=== PATIENT | female | born 1970 | race Hispanic/Latino ===

== ENCOUNTER 2019-10-01 06:32 | Emergency (ER) | payer BC, SELFPAY ==
--- NOTE | 2019-10-01 07:26 | EDPHYS ---
Physician Documentation [facility] Name: Lzu Freeman Age: 49 yrs Sex: Female : 1970 Arrival Date: 10/01/2019 Time: 06:33 Bed 18 Private MD: ED Physician Alexandr Pina HPI: 09/30 06:43 This 49 yrs old Female presents to ER via Unassigned with complaints of Sore cp Throat. 06:43 The patient presents with sore throat. Onset: The symptoms/episode began/occurred this cp morning. Severity of symptoms: in the emergency department the symptoms are unchanged, despite home interventions. Associated signs and symptoms: Pertinent negatives cough, dysphagia, earache, fever, flu-like symptoms, headache. 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 - Social history:: Smoking status: Patient denies any tobacco usage or history of. ROS: 06:43 Eyes: Negative for injury, pain, redness, and discharge. cp 06:43 Constitutional: Negative for body aches, chills, fever, poor PO intake. 06:43 ENT: Positive for sore throat, Negative for drainage from ear(s), ear pain, difficulty swallowing, difficulty handling secretions. 06:43 Respiratory: Negative for cough, shortness of breath, wheezing. 06:43 Abdomen/GI: Negative for abdominal pain, nausea, vomiting, and diarrhea. 06:43 Skin: Negative for rash. 06:43 Neuro: Negative for headache. 06:43 All other systems are negative. Exam: 06:45 Head/Face: Normocephalic, atraumatic. cp 06:45 Constitutional: The patient appears in no acute distress, alert, awake, non-toxic, well developed, well nourished. 06:45 Eyes: Periorbital structures: appear normal, Conjunctiva: normal, no exudate, no injection, Lids and lashes: appear normal, bilaterally. 06:45 ENT: External ear(s): are unremarkable, Ear canal(s): cerumen impaction, that is moderate, bilaterally, Nose: is normal, Mouth: Lips: moist, Oral mucosa: moist, Posterior pharynx: Airway: no evidence of obstruction, patent, Tonsils: no enlargement, no exudate, Uvula: midline, swelling, is not appreciated, erythema, that is mild, exudate, is not appreciated. 06:45 Neck: ROM/movement: is normal, is supple, no meningismus, no nuchal rigidity, Lymph nodes: no appreciated lymphadenopathy. 06:45 Chest/axilla: Inspection: normal, Palpation: is normal, no crepitus, no tenderness. 06:45 Cardiovascular: Rate: normal, Rhythm: regular. 06:45 Respiratory: the patient does not display signs of respiratory distress, Respirations: normal, no use of accessory muscles, no retractions, labored breathing, is not present. 06:45 Abdomen/GI: Exam negative for discomfort, distension, guarding, Inspection: abdomen appears normal. Vital Signs: 06:41 BP 162 / 97; Pulse 72; Resp 18; Temp 97.3; Pulse Ox 98% ; Weight 97.52 kg; Height 5 ft. ea 4 in. (162.56 cm); 06:41 Body Mass Index 36.90 (97.52 kg, 162.56 cm) ea MDM: 06:39 Patient medically screened. cp 06:44 Differential diagnosis: group A strep tonsillitis, influenza, pharyngitis, cp retropharyngeal abcess tonsillitis, upper respiratory infection, uvulitis. 07:22 Data reviewed: vital signs, nurses notes, lab test result(s), and as a result, I will cp discharge patient. 07:22 Counseling: I had a detailed discussion with the patient and/or guardian regarding: the cp historical points, exam findings, and any diagnostic results supporting the discharge/admit diagnosis, lab results, to return to the emergency department if symptoms worsen or persist or if there are any questions or concerns that arise at home. 09/30 06:43 Order name: Strep cp 09/30 07:12 Order name: Throat Culture EDMS Administered Medications: No medications were administered Disposition: 10:41 Co-signature as Attending Physician, Alexandr Pina MD I agree with the assessment and tw4 plan of care. Disposition: 10/01/19 07:23 Discharged to Home. Impression: Acute pharyngitis. - Condition is Stable. - Discharge Instructions: Pharyngitis. - Work release form, Medication Reconciliation Form, Thank You Letter, Antibiotic Education, Prescription Opioid Use form. - Follow up: Private Physician; When: 2 - 3 days; Reason: Worsening of condition. - Problem is new. - Symptoms are unchanged. Signatures: Dispatcher [employer] Sathya Velasquez RN RN em Page, Corey, PA PA cp Antunez, Elena, RN RN ea Wadley, Terrence, MD MD tw4 Corrections: (The following items were deleted from the chart) 07:30 07:23 10/01/2019 07:23 Discharged to Home. Impression: Acute pharyngitis. Condition is em Stable. Forms are Medication Reconciliation Form, Thank You Letter, Antibiotic Education, Prescription Opioid Use. Follow up: Private Physician; When: 2 - 3 days; Reason: Worsening of condition. Problem is new. Symptoms are unchanged. cp
--- NOTE | 2019-10-01 07:26 | ER ---
Nurse's Notes [facility] Name: Luz Freeman Age: 49 yrs Sex: Female : 1970 Arrival Date: 10/01/2019 Time: 06:33 Bed 18 Private MD: Diagnosis: Acute pharyngitis Presentation: 09/30 06:43 Chief complaint: Patient states: Pt reports she woke with a sore throat. States " I ea think it's just allergies". Coronavirus screen: The patient has NOT traveled to a country currently being monitored by the [facility] within the last 14 days. Ebola Screen: No symptoms or risks identified at this time. Initial Sepsis Screen: Does the patient meet any 2 criteria? No. Patient's initial sepsis screen is negative. Does the patient have a suspected source of infection? No. Patient's initial sepsis screen is negative. Risk Assessment: Do you want to hurt yourself or someone else? Patient reports no desire to harm self or others. 06:43 Method Of Arrival: Ambulatory ea 06:43 Acuity: CHEL 4 ea Triage Assessment: 06:49 General: Appears in no apparent distress. Behavior is appropriate for age. 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 - Social history:: Smoking status: Patient denies any tobacco usage or history of. Screenin:39 Abuse screen: Denies threats or abuse. Nutritional screening: No deficits noted. ea Tuberculosis screening: No symptoms or risk factors identified. Fall Risk None identified. Assessment: 06:46 Pain: Complains of pain in sore throat. Neuro: Level of Consciousness is awake, alert, ea obeys commands, Oriented to person, place, time. Respiratory: Airway is patent Respiratory effort is even, unlabored, Breath sounds are clear. EENT: Parent/caregiver reports the patient having sore throat. Vital Signs: 06:41 BP 162 / 97; Pulse 72; Resp 18; Temp 97.3; Pulse Ox 98% ; Weight 97.52 kg; Height 5 ft. ea 4 in. (162.56 cm); 06:41 Body Mass Index 36.90 (97.52 kg, 162.56 cm) ea ED Course: 06:33 Patient arrived in ED. cl3 06:35 Valentino Sotomayor PA is PHCP. cp 06:35 Alexandr Pina MD is Attending Physician. cp 06:40 Arm band placed on right wrist. Patient placed in an exam room, on a stretcher, on ea pulse oximetry. 06:40 Patient has correct armband on for positive identification. Bed in low position. Call ea light in reach. Side rails up X2. 06:45 Triage completed. ea 07:15 Sathya Laughlin, RN is Primary Nurse. em 07:30 No provider procedures requiring assistance completed. Patient did not have IV access em during this emergency room visit. Administered Medications: No medications were administered Outcome: 07:23 Discharge ordered by MD. cp 07:30 Discharged to home ambulatory. em 07:30 Condition: good 07:30 Discharge instructions given to patient, Instructed on discharge instructions, follow up and referral plans. Demonstrated understanding of instructions, follow-up care. 07:30 Patient left the ED. em Signatures: Sathya Laughlin, RN RN em Valentino Sotomayor PA PA cp Antunez, Elena, RN RN Jose David Lynne cl3
[2019-10-01 07:38] VITALS: BP 162/97; TEMP 97.3; O2SAT 98
== END 2019-10-01 07:30 | disposition home or self-care (01) ==
LOC: ER 06:32
DX: J02.9 Acute pharyngitis, unspecified (principal)
CPT/HCPCS: 87070; 87081; 99283

== ENCOUNTER 2020-01-05 04:15 | Emergency (ER) | payer SELFPAY ==
[2020-01-05 05:10] LABS: Urine Blood 2+ (NEG); Urine Glucose NEGATIVE (NEG); Urine Protein 1+ (NEG); Urine Specific Gravity 1.015 (1.005-1.030); Urine pH 6.5 (5.0-7.0)
--- NOTE | 2020-01-05 05:11 | EDPHYS ---
Physician Documentation [facility] Name: Luz Freeman Age: 49 yrs Sex: Female : 1970 Arrival Date: 01/05/2020 Time: 04:20 Bed 6 Private MD: Adis Johnston ED Physician Alexandr Pina HPI: 01/04 05:03 This 49 yrs old Female presents to ER via Wheelchair with complaints of Back tw4 Pain, cold sweats. 05:03 The patient presents with pain that is acute. The symptoms are located in the low back. tw4 Onset: The symptoms/episode began/occurred today. The pain does not radiate. Associated signs and symptoms: Pertinent positives: chills, cold sweats, Pertinent negatives: chest pain, constipation, dysuria, numbness, tingling. The problem was sustained from unknown cause. Modifying factors: The patient symptoms are alleviated by nothing, the patient symptoms are aggravated by nothing. The patient has not experienced similar symptoms in the past. Historical: - Allergies: 04:22 NKDA; sg - Home Meds: 04:30 None [Active]; sg - PMHx: 04:30 None; sg - PSHx: 04:22 None; sg - Immunization history:: Adult Immunizations up to date. - Social history:: Smoking status: Patient denies any tobacco usage or history of. ROS: 05:03 Constitutional: Negative for fever, chills, and weight loss, Eyes: Negative for injury, tw4 pain, redness, and discharge, Cardiovascular: Negative for chest pain, palpitations, and edema, Respiratory: Negative for shortness of breath, cough, wheezing, and pleuritic chest pain, Abdomen/GI: Negative for abdominal pain, nausea, vomiting, diarrhea, and constipation, MS/Extremity: Negative for injury and deformity, Skin: Negative for injury, rash, and discoloration, Neuro: Negative for headache, weakness, numbness, tingling, and seizure. Exam: 05:03 Constitutional: This is a well developed, well nourished patient who is awake, alert, tw4 and in no acute distress. Head/Face: Normocephalic, atraumatic. Chest/axilla: Normal chest wall appearance and motion. Nontender with no deformity. No lesions are appreciated. Cardiovascular: Regular rate and rhythm with a normal S1 and S2. No gallops, murmurs, or rubs. Normal PMI, no JVD. No pulse deficits. Respiratory: Lungs have equal breath sounds bilaterally, clear to auscultation and percussion. No rales, rhonchi or wheezes noted. No increased work of breathing, no retractions or nasal flaring. Abdomen/GI: Soft, non-tender, with normal bowel sounds. No distension or tympany. No guarding or rebound. No evidence of tenderness throughout. MS/ Extremity: Pulses equal, no cyanosis. Neurovascular intact. Full, normal range of motion. Neuro: Awake and alert, GCS 15, oriented to person, place, time, and situation. Cranial nerves II-XII grossly intact. Motor strength 5/5 in all extremities. Sensory grossly intact. Cerebellar exam normal. Normal gait. 05:03 Back: pain, that is mild, ROM is normal, normal spinal alignment noted. Vital Signs: 04:30 BP 146 / 66; Pulse 83; Resp 17; Temp 98; Pulse Ox 98% on R/A; rv 05:11 BP 123 / 64; Pulse 83; Resp 18; Pulse Ox 97% on R/A; rv MDM: 04:31 Patient medically screened. tw4 05:03 Data reviewed: vital signs, nurses notes. Data interpreted: Pulse oximetry: [facility] Interpretation: normal. Counseling: I had a detailed discussion with the patient and/or guardian regarding: the historical points, exam findings, and any diagnostic results supporting the discharge/admit diagnosis. 05:09 Differential diagnosis: Ureterolithiasis. Special discussion: I discussed with the 4 patient/guardian in detail that at this point there is no indication for admission to the hospital. It is understood, however, that if the symptoms persist or worsen the patient needs to return immediately for re-evaluation. 01/04 04:32 Order name: Urine Microscopic Only 4 01/04 05:06 Order name: Urine Dipstick--Ancillary (enter results) tt3 01/04 04:32 Order name: Urine Dipstick-Ancillary (obtain specimen); Complete Time: 05:02 4 01/04 04:32 Order name: Urine Test (obtain specimen); Complete Time: 05:02 01/04 05:06 Order name: Urine --Ancillary (enter results) tt3 Administered Medications: No medications were administered Disposition: 01/05/20 05:09 Discharged to Home. Impression: Urinary tract infection, site not specified. - Condition is Stable. - Discharge Instructions: Urinary Tract Infection, Adult. - Prescriptions for Pyridium 200 mg Oral Tablet - take 1 tablet by ORAL route every 8 hours for 3 days; 9 tablet. Macrobid 100 mg Oral Capsule - take 1 capsule by ORAL route every 12 hours for 10 days; 20 capsule. - Medication Reconciliation Form, Thank You Letter, Antibiotic Education, Prescription Opioid Use form. - Follow up: Adis Johnston MD; When: Upon discharge from the Emergency Department; Reason: Recheck today's complaints, Continuance of care, Re-evaluation by your physician. - Problem is new. - Symptoms have improved. Signatures: Dispatcher [employer] EDMS Mario Nolan RN RN sg Alexandr Pina MD MD tw4 Siva Storey RN RN rr5 Corrections: (The following items were deleted from the chart) 05: 05:09 01/05/2020 05:09 Discharged to Home. Impression: Urinary tract infection, site rr5 not specified. Condition is Stable. Forms are Medication Reconciliation Form, Thank You Letter, Antibiotic Education, Prescription Opioid Use. Follow up: Adis Johnston; When: Upon discharge from the Emergency Department; Reason: Recheck today's complaints, Continuance of care, Re-evaluation by your physician. Problem is new. Symptoms have improved. tw4
--- NOTE | 2020-01-05 05:11 | ER ---
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 Coronavirus screen: Patient reports shortness of breath or difficulty breathing. Ebola Screen: Patient negative for fever greater than or equal to 101.5 degrees Fahrenheit, and additional compatible Ebola Virus Disease symptoms Patient denies exposure to infectious person. Patient denies travel to an Ebola-affected area in the 21 days before illness onset. No symptoms or risks identified at this time. Initial Sepsis Screen: Does the patient meet any 2 criteria? No. Patient's initial sepsis screen is negative. Does the patient have a suspected source of infection? No. Patient's initial sepsis screen is negative. Risk Assessment: Do you want to hurt yourself or someone else? Patient reports no desire to harm self or others. Onset of symptoms was January 03, 2020. Care prior to arrival: None. 04:22 Method Of Arrival: Wheelchair sg 04:22 Acuity: CHEL 3 sg Triage Assessment: 05:12 General: Appears comfortable, Behavior is calm, cooperative. rv Historical: - Allergies: 04:22 NKDA; sg - Home Meds: 04:30 None [Active]; sg - PMHx: 04:30 None; sg - PSHx: 04:22 None; sg - Immunization history:: Adult Immunizations up to date. - Social history:: Smoking status: Patient denies any tobacco usage or history of. Screenin:12 Abuse screen: Denies threats or abuse. Denies injuries from another. Nutritional rv screening: No deficits noted. Tuberculosis screening: No symptoms or risk factors identified. Fall Risk None identified. Assessment: 04:22 General: Appears in no apparent distress. uncomfortable, Behavior is calm, cooperative, rr5 appropriate for age. 04:22 Pain: Complains of pain in left low back and right low back Pain currently is 9 out of rr5 10 on a pain scale. Quality of pain is described as aching, Pain began gradually, Is intermittent. Neuro: Level of Consciousness is awake, alert, obeys commands, Oriented to person, place, time, situation, Appropriate for age. Cardiovascular: Capillary refill < 3 seconds Patient's skin is warm and dry. Respiratory: Reports shortness of breath Airway is patent Respiratory effort is even, unlabored, Respiratory pattern is regular, symmetrical. GI: No signs and/or symptoms were reported involving the gastrointestinal system. : No signs and/or symptoms were reported regarding the genitourinary system. EENT: No signs and/or symptoms were reported regarding the EENT system. Derm: No signs and/or symptoms reported regarding the dermatologic system. Musculoskeletal: Capillary refill < 3 seconds. Vital Signs: 04:30 BP 146 / 66; Pulse 83; Resp 17; Temp 98; Pulse Ox 98% on R/A; rv 05:11 BP 123 / 64; Pulse 83; Resp 18; Pulse Ox 97% on R/A; rv ED Course: 04:20 Patient arrived in ED. es 04:21 Adis Johnston MD is Private Physician. es 04:26 Arm band placed on. sg 04:28 Triage completed. sg 04:30 Patient has correct armband on for positive identification. Bed in low position. Call rv light in reach. Pulse ox on. NIBP on. 04:31 Alexandr Pina MD is Attending Physician. tw4 05:02 Siva Storey, MIREYA is Primary Nurse. rr5 05:09 Adis Johnston MD is Referral Physician. tw4 05:12 No provider procedures requiring assistance completed. Patient did not have IV access rv during this emergency room visit. Administered Medications: No medications were administered Outcome: 05:09 Discharge ordered by . tw4 05:13 Discharged to home ambulatory. rr5 05:13 Condition: stable 05:13 Discharge instructions given to patient, Instructed on discharge instructions, follow up and referral plans. medication usage, Demonstrated understanding of instructions, follow-up care, medications, Prescriptions given X 2. 05:20 Patient left the ED. rr5 Addendum: 01/08/2020 17:09 Addendum: Culture Results: Positive urine culture. No further action required. Bacteria i w sensitive to prescribed antibiotic. Signatures: Mario Nolan, RN RN sg Cristian, Becca Bae RN RN iw Alexandr Pina MD MD tw4 Richard Rosales, RN RN Siva Elliott RN RN rr5
[2020-01-05 05:21] LABS: Urine Bacteria >50 /HPF (<20); Urine Culture Reflex Order REFLEXED; Urine Yeast FEW (NONE SEEN)
[2020-01-05 05:39] VITALS: TEMP 98
[2020-01-05 05:41] VITALS: BP 123/64; O2SAT 97
--- OUTSIDE RECORDS SUMMARY | 2020-01-05 13:55 | XMS REPORT | Continuity of Care Document ---
:1970 Author Organization [facility] t Address [address] [place] [address] [address] [place] [address] Care Team Providers Name Role Phone Isidro HANEY Attending Clinician Problems This patient has no known problems. Allergies, Adverse Reactions, Alerts This patient has no known allergies or adverse reactions. Medications This patient has no known medications. Procedures This patient has no known procedures. Encounters Start End Encounter Admission Attending Care Care Encounter Source Date/Time Date/Time Type Type Clinicians Facility Department ID 2019-10-02 2019-10-02 [id number] 08:08:24 09:12:00 Osei Aldana [id number] [place] [id number] [place] [id number] Results This patient has no known results.
== END 2020-01-05 05:20 | disposition home or self-care (01) ==
LOC: ER 04:15
DX: N39.0 Urinary tract infection, site not specified (principal)
CPT/HCPCS: 81003; 81015; 81025; 87077; 87086; 87088; 87186; 99283

== ENCOUNTER 2020-01-06 20:01 | Emergency (ER) | payer SELFPAY ==
--- OUTSIDE RECORDS SUMMARY | 2020-01-06 20:03 | XMS REPORT | Continuity of Care Document ---
:1970 Author Organization [facility] t Address [address] [place] [address] Care Team Providers Name Role Phone Isidro [...] Clinicians Facility Department ID 2019-10-02 2019-10-02 Emergency Isidro [facility] [id number] 08:08:24 09:12:00 Osei Aldana [id number] [place] [id number] [place] [id number] Results This patient has no known results.
[2020-01-06 23:15] LABS: Absolute Lymphocytes (CBC) 2.2 K/uL (0.7-4.9); Basophils % 0.8 % (0-1.3); Hematocrit 40.5 % (36.0-45.0); Lymphocytes % 15.1 % (15.3-44.8); MPV 11.2 fL (7.6-11.3); RBC Red Blood Cell Count 4.46 M/uL (3.86-4.86)
[2020-01-06] MEDS ORDERED: NA CHLORIDE 0.9% 1,000 ML ONE (23:22)
[2020-01-06] MEDS ORDERED: ACETAMINOPHEN 500 MG TAB ONE (23:22)
[2020-01-06] MEDS ORDERED: ONDANSETRON 4 MG/2 ML VIAL ONE (23:54)
[2020-01-06] MEDS ORDERED: CEFTRIAXONE/SWI 1gm 1 GM/10 ML SYR ONE (23:55)
[2020-01-07 00:02] LABS: Albumin 3.1 g/dL (3.4-5.0); Bilirubin Direct 0.2 mg/dL (0-0.2); Bilirubin Total 0.5 mg/dL (0.2-1.0); Potassium 3.7 mmol/L (3.5-5.1)
[2020-01-07 00:21] LABS: Urine Bacteria 20-50 /HPF (<20); Urine Culture Reflex Order REFLEXED
[2020-01-07 00:24] LABS: Urine Blood 2+ (NEG); Urine Glucose TRACE (NEG); Urine Protein 2+ (NEG); Urine Specific Gravity 1.015 (1.005-1.030)
--- NOTE | 2020-01-07 00:55 | ER ---
Nurse's Notes [facility] Name: Luz Freeman Age: 49 yrs Sex: Female : 1970 Arrival Date: 01/06/2020 Time: 20:03 Bed 15 Private MD: Diagnosis: Urinary tract infection, site not specified-pyelonephritis Presentation: 01/05 20:13 Chief complaint: Patient states: Back pain for over 1 week. Seen here Tuesday night. ll1 Diagnosed with UTI. Pain is still severe, body aches, not feeling well. States she has a bleeding ulcer she wants checked also. Antibiotics aren't helping. Coronavirus screen: Proceed with normal triage. Patient denies a cough. Patient denies shortness of breath or difficulty breathing. Patient reports a measured and/or subjective temperature greater than 100.4F. Patient denies travel on a cruise ship or to a country the [facility] currently lists as an affected area. Patient denies contact with known and/or suspected case of COVID-19. Ebola Screen: Patient denies travel to an Ebola-affected area in the 21 days before illness onset. Initial Sepsis Screen: Does the patient meet any 2 criteria? Temp <36.0*C (96.8*F)) or > 38.3*C (100.9*F). HR > 90 bpm. Risk Assessment: Do you want to hurt yourself or someone else? Patient reports no desire to harm self or others. Onset of symptoms was December 26, 2019. 20:13 Method Of Arrival: [facility] 20:13 Acuity: CHEL 3 ll1 23:24 Initial Sepsis Screen: Does the patient have a suspected source of infection? Yes: ll1 Dysuria/Frequency/Urgency/UTI Acute abdominal pain. Triage Assessment: 23:20 General: Appears. 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 - Social history:: Smoking status: Patient denies any tobacco usage or history of. Patient/guardian denies using alcohol, street drugs, tobacco products. Screenin:20 Abuse screen: Denies threats or abuse. Nutritional screening: No deficits noted. ll1 Tuberculosis screening: No symptoms or risk factors identified. Fall Risk None identified. IV access (20 points). Total Saleh Fall Scale indicates No Risk (0-24 pts). Assessment: 22:40 General: Appears uncomfortable, Behavior is calm, cooperative, appropriate for age. ll1 Pain: Complains of pain in back, body aches Quality of pain is described as aching, Pain began over 1 week. Neuro: No deficits noted. Level of Consciousness is awake, alert, obeys commands, Oriented to person, place, time, situation, Videogame Designer are equal bilaterally Moves all extremities. Full function Gait is steady, Speech is normal, Facial symmetry appears normal, Reports weakness generalized weakness and malaise. Cardiovascular: No deficits noted. Respiratory: No deficits noted. GI: Abdomen is flat, Bowel sounds present X 4 quads. Abd is soft and non tender X 4 quads. Reports lower abdominal pain, diarrhea, nausea. : Urine is orange red in color, taking azo. Sent to lab for further testing. Reports being treated for UTI, taking azo. Denies dysuria now. Musculoskeletal: Reports generalized body aches and back pain. 23:40 Reassessment: Patient appears in no apparent distress at this time. No changes from ll1 previously documented assessment. Patient and/or family updated on plan of care and expected duration. Pain level reassessed. Patient is alert, oriented x 3, equal unlabored respirations, skin warm/dry/pink. 01/06 00:37 Reassessment: Patient appears in no apparent distress at this time. No changes from ch2 previously documented assessment. Patient and/or family updated on plan of care and expected duration. Pain level reassessed. Patient is alert, oriented x 3, equal unlabored respirations, skin warm/dry/pink. Patient denies pain at this time. General: Appears in no apparent distress. ill, well groomed, Behavior is calm, cooperative, appropriate for age, drowsy. Pain: Denies pain. 01:06 Reassessment: Patient appears in no apparent distress at this time. No changes from ch2 previously documented assessment. Patient and/or family updated on plan of care and expected duration. Pain level reassessed. Patient is alert, oriented x 3, equal unlabored respirations, skin warm/dry/pink. Patient denies pain at this time. Vital Signs: 01/05 20:13 BP 134 / 70; Pulse 105; Resp 19; Temp 100.9; Pulse Ox 95% ; Pain 10/10; ll1 23:23 Resp 18; Temp 100.3; ll1 01/06 00:36 Temp 98.7(O); Pain 0/10; ch2 00:38 BP 123 / 71; Pulse 75; Resp 18; Temp 98.7(O); Pulse Ox 94% on R/A; Pain 0/10; ch2 01:09 BP 128 / 74; Pulse 77; Resp 16; Pulse Ox 95% on R/A; Pain 0/10; ch2 ED Course: 01/05 20:03 Patient arrived in ED. ag3 20:15 Triage completed. ll1 20:16 Arm band placed on. ll1 22:37 Gavin Welsh NP is PHCP. pm1 22:37 Valentino Kong MD is Attending Physician. pm1 23:00 Inserted saline lock: 20 gauge in right antecubital area, using aseptic technique. 1 Blood collected. 23:12 Vin Singletary RN is Primary Nurse. 1 23:20 Patient has correct armband on for positive identification. Bed in low position. Call [facility] light in reach. Side rails up X 1. 23:43 Radiology exam delayed due to IV insertion attempt and/or patient not having kw1 appropriate IV at this time. 23:59 Report given to MIREYA Titus. [facility] 01/06 00:23 CT Abd/Pelvis - IV Contrast Only In Process Unspecified. EDMS 00:38 Pulse ox on. NIBP on. ch2 01:07 No provider procedures requiring assistance completed. ch2 01:08 IV discontinued, intact, bleeding controlled, No redness/swelling at site. Pressure ch2 dressing applied. Administered Medications: 01/05 23:19 Drug: NS 0.9% 1000 ml Route: IV; Rate: 1000 ml; Site: right antecubital; [facility] 01/06 01:08 Follow up: IV Status: Completed infusion; IV Intake: 1000ml [facility] 01/05 23:19 Drug: Tylenol 1000 mg Route: PO; 1 23:49 Follow up: Response: No adverse reaction; RASS: Alert and Calm (0) [facility] 01/06 00:36 Follow up: Temp 98.7 Oral; Pain 0/10 Adult; Response: No adverse reaction; Temperature [facility] is decreased; Pain is decreased 01/05 23:49 Drug: Zofran (Ondansetron) 4 mg Route: IVP; Site: right antecubital; ll1 01/06 00:35 Follow up: Response: No adverse reaction; Marked relief of symptoms; Nausea is decreasedch2 00:35 Drug: Rocephin 1 grams Route: IV; Rate: calculated rate; Site: right antecubital; ch2 00:59 Follow up: Response: No adverse reaction; IV Intake: 10ml ch2 01:01 CANCELLED (Physician Discretion): LevaQUIN 750 mg 150 ml IVPB once over 90 mins pm1 01:06 Drug: LevaQUIN 750 mg Route: PO; ch2 Intake: 00:59 IV: 10ml; Total: 10ml. ch2 01:08 IV: 1000ml; Total: 1010ml. ch2 Outcome: 00:54 Discharge ordered by . pm1 01:07 Discharged to home ambulatory. ch2 01:07 Condition: improved 01:07 Discharge instructions given to patient, Instructed on discharge instructions, follow up and referral plans. medication usage, Demonstrated understanding of instructions, follow-up care, medications, Prescriptions given X 3. 01:34 Patient left the ED. ch2 Signatures: Dispatcher [employer] EDMS Gavin Welsh, [employer] pm1 Jeniffer Seay kw1 Ariela Salinas, MIREYA RN ch2 Fabienne Rodriguez 3 Vin Singletary RN RN ll1
--- NOTE | 2020-01-07 00:55 | EDPHYS ---
Physician Documentation [facility] Name: Luz Freeman Age: 49 yrs Sex: Female : 1970 Arrival Date: 01/06/2020 Time: 20:03 Bed 15 Private MD: ED Physician Valentino Kong HPI: 01/05 22:51 This 49 yrs old Female presents to ER via Ambulatory with complaints of Back pm1 Pain. 22:51 The patient presents with pain that is acute, with no known mechanism of injury. The pm1 symptoms are located in the right low back. Onset: The symptoms/episode began/occurred 1 week(s) ago. The pain does not radiate. Associated signs and symptoms: Pertinent positives: fever, nausea, Pertinent negatives: constipation, dysuria, vomiting, Diarrhea. The problem was sustained diagnosed with UTI yesterday and discharged home with macrobid. Modifying factors: The patient symptoms are alleviated by nothing, the patient symptoms are aggravated by nothing. Severity of symptoms: in the emergency department the symptoms are actually worse. The patient has not experienced similar symptoms in the past. The patient has been recently seen at the [facility] Emergency Department, yesterday, for similar complaints urine test. 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 - Social history:: Smoking status: Patient denies any tobacco usage or history of. Patient/guardian denies using alcohol, street drugs, tobacco products. ROS: 22:51 Constitutional: Negative for fever, chills, and weight loss, Cardiovascular: Negative pm1 for chest pain, palpitations, and edema, Respiratory: Negative for shortness of breath, cough, wheezing, and pleuritic chest pain. 22:51 : Negative for injury, bleeding, discharge, and swelling, MS/Extremity: Negative for injury and deformity, Skin: Negative for injury, rash, and discoloration, Neuro: Negative for headache, weakness, numbness, tingling, and seizure. 22:51 Abdomen/GI: Positive for nausea, Negative for abdominal pain, vomiting, diarrhea, constipation. 22:51 Back: Positive for flank pain, on the right, Negative for decreased range of motion. Exam: 22:51 Constitutional: This is a well developed, well nourished patient who is awake, alert, pm1 and in no acute distress. Head/Face: Normocephalic, atraumatic. 22:51 Abdomen/GI: Soft, non-tender, with normal bowel sounds. No distension or tympany. No guarding or rebound. No evidence of tenderness throughout. 22:51 Skin: Warm, dry with normal turgor. Normal color with no rashes, no lesions, and no evidence of cellulitis. MS/ Extremity: Pulses equal, no cyanosis. Neurovascular intact. Full, normal range of motion. 22:51 Cardiovascular: Exam negative for acute changes, Rate: normal, Rhythm: regular, Pulses: no pulse deficits are appreciated. 22:51 Respiratory: Exam negative for acute changes, respiratory distress, shortness of breath. 22:51 Back: pain, that is mild, of the right mid back, ROM is normal, painless, normal spinal alignment noted. 22:51 Neuro: Exam negative for acute changes, Orientation: is normal, Mentation: is normal, Motor: is normal, moves all fours, Sensation: is normal, no obvious gross deficits. Vital Signs: 20:13 BP 134 / 70; Pulse 105; Resp 19; Temp 100.9; Pulse Ox 95% ; Pain 10/10; ll1 23:23 Resp 18; Temp 100.3; ll1 01/06 00:36 Temp 98.7(O); Pain 0/10; ch2 00:38 BP 123 / 71; Pulse 75; Resp 18; Temp 98.7(O); Pulse Ox 94% on R/A; Pain 0/10; ch2 01:09 BP 128 / 74; Pulse 77; Resp 16; Pulse Ox 95% on R/A; Pain 0/10; ch2 MDM: 01/05 22:39 Patient medically screened. [facility] 01/06 00:50 Data reviewed: vital signs. Data interpreted: Pulse oximetry: on room air is 95 %. pm1 Interpretation: normal. 00:50 Counseling: I had a detailed discussion with the patient and/or guardian regarding: the pm1 historical points, exam findings, and any diagnostic results supporting the discharge/admit diagnosis, lab results, radiology results. 00:50 ED course: offered patient admission but patient would like to go home. Patient has pm1 taken 3 total doses of macrobid but not no long enough to indicate antibiotic failure. Patient without any vomiting. Macrobid not first line therapy for pyelonephritis. Will discharge home with quinolone pending urine culture results . 00:50 Counseling: I had a detailed discussion with the patient and/or guardian regarding: the pm1 need for outpatient follow up, to return to the emergency department if symptoms worsen or persist or if there are any questions or concerns that arise at home. 01/05 22:51 Order name: Basic Metabolic Panel; Complete Time: 00:21 pm1 01/05 22:51 Order name: CBC with Diff; Complete Time: 23:23 pm1 01/05 22:51 Order name: Hepatic Function; Complete Time: 00:21 pm01/05 22:51 Order name: Lipase; Complete Time: 00:21 pm1 01/05 22:51 Order name: Urine Microscopic Only; Complete Time: 00:22 pm01/05 23:03 Order name: Urine Dipstick--Ancillary (enter results); Complete Time: 00:29 mw2 01/05 22:51 Order name: CT Abd/Pelvis - IV Contrast Only 1 01/05 23:03 Order name: Urine --Ancillary (enter results); Complete Time: 00:29 mw01/06 00:50 Order name: CREATININE WHOLE BLOOD; Complete Time: 00:55 EDMS 01/05 22:51 Order name: IV Saline Lock; Complete Time: 23:13 pm1 01/05 22:51 Order name: Labs collected and sent; Complete Time: 23:13 pm01/05 22:51 Order name: Urine Dipstick-Ancillary (obtain specimen); Complete Time: 23:12 pm01/05 22:51 Order name: Urine Test (obtain specimen); Complete Time: 23:12 pm1 Administered Medications: 01/05 23:19 Drug: NS 0.9% 1000 ml Route: IV; Rate: 1000 ml; Site: right antecubital; [facility] 01/06 01:08 Follow up: IV Status: Completed infusion; IV Intake: 1000ml ch2 01/05 23:19 Drug: Tylenol 1000 mg Route: PO; [facility] 23:49 Follow up: Response: No adverse reaction; RASS: Alert and Calm (0) [facility] 01/06 00:36 Follow up: Temp 98.7 Oral; Pain 0/10 Adult; Response: No adverse reaction; Temperature ch2 is decreased; Pain is decreased 01/05 23:49 Drug: Zofran (Ondansetron) 4 mg Route: IVP; Site: right antecubital; ll1 01/06 00:35 Follow up: Response: No adverse reaction; Marked relief of symptoms; Nausea is decreasedch2 00:35 Drug: Rocephin 1 grams Route: IV; Rate: calculated rate; Site: right antecubital; ch2 00:59 Follow up: Response: No adverse reaction; IV Intake: 10ml ch2 01:01 CANCELLED (Physician Discretion): LevaQUIN 750 mg 150 ml IVPB once over 90 mins pm1 01:06 Drug: LevaQUIN 750 mg Route: PO; ch2 Disposition: 07:36 Co-signature as Attending Physician, Valentino Kong MD I agree with the assessment and asim plan of care. Disposition: 01/07/20 00:54 Discharged to Home. Impression: Urinary tract infection, site not specified - pyelonephritis. - Condition is Stable. - Discharge Instructions: Pyelonephritis, Adult. - Prescriptions for Levaquin 750 mg Oral Tablet - take 1 tablet by ORAL route once daily for 5 days; 5 tablet. Tylenol- Codeine #3 300-30 mg Oral Tablet - take 2 tablets by ORAL route every 6 hours As needed; 20 tablet. Zofran 4 mg Oral Tablet - take 1 tablet by ORAL route every 12 hours As needed; 20 tablet. - Medication Reconciliation Form, Thank You Letter, Antibiotic Education, Prescription Opioid Use form. - Follow up: Emergency Department; When: As needed; Reason: Worsening of condition. Follow up: Private Physician; When: 2 - 3 days; Reason: Recheck today's complaints, Continuance of care, Re-evaluation by your physician. - Problem is new. - Symptoms have improved. Signatures: Dispatcher [employer] Valentino Canales MD MD cha Marinas, Patrick, STRAIGHTENING PRESS OPERATOR HELPER STRAIGHTENING PRESS OPERATOR HELPER pm1 Ariela Salinas RN RN ch2 Vin Singletary RN RN ll1 Corrections: (The following items were deleted from the chart) 01:01 00:55 LevaQUIN 750 mg 150 ml IVPB once over 90 mins ordered. pm1 pm1 01:34 00:54 01/07/2020 00:54 Discharged to Home. Impression: Urinary tract infection, site ch2 not specified - pyelonephritis. Condition is Stable. Forms are Medication Reconciliation Form, Thank You Letter, Antibiotic Education, Prescription Opioid Use. Follow up: Emergency Department; When: As needed; Reason: Worsening of condition. Follow up: Private Physician; When: 2 - 3 days; Reason: Recheck today's complaints, Continuance of care, Re-evaluation by your physician. Problem is new. Symptoms have improved. pm1
[2020-01-07] MEDS ORDERED: levoFLOXacin 750 MG TAB ONE (01:05)
[2020-01-07 02:13] VITALS: TEMP 98.7
[2020-01-07 02:16] VITALS: BP 128/74; O2SAT 95
--- NOTE | 2020-01-07 09:46 | RAD REPORT ---
EXAM DESCRIPTION: CT - Abdomen Pelvis W Contrast - 01/07/2020 3:57 am CLINICAL HISTORY: FLANK PAIN TECHNIQUE: Contiguous axial images obtained through the abdomen and pelvis following the uneventful administration of IV contrast. Coronal and sagittal reformatted images were provided. This exam was performed according to our departmental dose-optimization program, which includes autom ated exposure control, adjustment of the mA and/or kV according to patient size and/or use of iterati ve reconstruction technique. COMPARISON: None available for comparison. FINDINGS: Lung bases: Left lower lobe calcified granulomata. Liver: Unremarkable Gallbladder and biliary system: Unremarkable Pancreas: Unremarkable Spleen: Unremarkable Adrenals: Unremarkable Kidneys: Somewhat heterogeneous renal cortical enhancement and minimal perinephric stranding bilatera lly. Small bilateral cysts, the largest at the upper pole on the right measuring 1.1 cm. No hydroneph rosis. Excreted contrast is present within both renal collecting systems bilaterally on delayed image s. Bowel: Moderate stool within the proximal to mid large bowel. No obstruction. No appreciable mucosal thickening. Appendix: Normal caliber appendix. No findings to suggest acute appendicitis. Urinary bladder: Unremarkable Reproductive: The uterus is retroverted. Bilateral tubal ligation clips. No adnexal mass. Lymph nodes: No pathologically enlarged lymph nodes. Peritoneum: No focal fluid collection. No free air. Vessels: No abdominal aortic aneurysm. Abdominal wall: Tiny fat-containing umbilical hernia. Bones: Multilevel spondylosis. No acute fracture. IMPRESSION: 1. Findings which may be related to bilateral pyelonephritis. 2. Other findings as above. Electronically signed by: Artie Dawson MD 01/07/2020 12:38 AM CDT Due to temporary technical issues with the PACS/Fluency reporting system, reports are being signed by the in house radiologist without review as a courtesy to ensure prompt reporting. The interpreting r adiologist is fully responsible for the content of the report.
== END 2020-01-07 01:34 | disposition home or self-care (01) ==
LOC: ER 20:01
DX: N39.0 Urinary tract infection, site not specified (principal); N12 Tubulo-interstitial nephritis, not specified as acute or chronic
CPT/HCPCS: 36415; 74177; 80048; 80076; 81003; 81015; 81025; 82565; 83690; 85025; 96361; 96374; 96375; 99284; J0696; J2405; J7030; Q9967

== ENCOUNTER 2020-08-10 10:05 | Emergency (ER) | payer SELFPAY ==
--- OUTSIDE RECORDS SUMMARY | 2020-08-10 10:07 | XMS REPORT | Continuity of Care Document ---
:1970 Author Organization [facility] t Address [address] [place] [address] [address]. [address] [place] [address] Care Team Providers Name Role Phone Isidro [...] Clinicians Facility Department ID 2019-10-02 2019-10-02 [facility] [id number] 08:08:24 09:12:00 Osei Aldana [id number] [place] [id number] [place] [phone] [id number] Results This patient has no known results.
[2020-08-10 12:16] LABS: SARS-COV-2 RT PCR POSITIVE (NEGATIVE)
--- NOTE | 2020-08-10 12:16 | ER ---
Nurse's Notes [facility] Name: Luz Freeman Age: 49 yrs Sex: Female : 1970 Arrival Date: 08/10/2020 Time: 10:07 Bed 12 Private MD: Diagnosis: Coronavirus infection, unspecified Presentation: 08/10 10:20 Chief complaint: Patient states: cough, fever, loss of sense of smell, also having iw chest and back pains. Coronavirus screen: congestion, cough unrelated to allergies, fever, loss of taste or smell. Ebola Screen: Patient negative for fever greater than or equal to 101.5 degrees Fahrenheit, and additional compatible Ebola Virus Disease symptoms Patient denies exposure to infectious person. Patient denies travel to an Ebola-affected area in the 21 days before illness onset. No symptoms or risks identified at this time. Initial Sepsis Screen: Does the patient meet any 2 criteria? No. Patient's initial sepsis screen is negative. Does the patient have a suspected source of infection? No. Patient's initial sepsis screen is negative. Risk Assessment: Do you want to hurt yourself or someone else? Patient reports no desire to harm self or others. Onset of symptoms. Onset of symptoms was August 09, 2020. 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 - Social history:: Smoking status: Patient denies any tobacco usage or history of. Screenin:40 Abuse screen: Denies threats or abuse. Denies injuries from another. Nutritional ca1 screening: No deficits noted. Tuberculosis screening: No symptoms or risk factors identified. Fall Risk None identified. Assessment: 10:40 General: Appears in no apparent distress. comfortable, Behavior is calm, cooperative, ca1 appropriate for age, Reports fever for 1-2 days, not today. Pain: Complains of pain in back and chest Pain currently is 5 out of 10 on a pain scale. Pain began 1 day ago. now just back pain, no chest pain today. Neuro: Level of Consciousness is awake, alert, obeys commands, Oriented to person, place, time, situation. Cardiovascular: Heart tones S1 S2 present Capillary refill < 3 seconds Patient's skin is warm and dry. Respiratory: Airway is patent Respiratory effort is even, unlabored. Derm: Skin is intact, is healthy with good turgor, Skin is pink, warm \T\ dry. Musculoskeletal: Circulation, motion, and sensation intact. Capillary refill < 3 seconds. Vital Signs: 10:21 BP 149 / 93; Resp 18 S; Temp 98.2; Pulse Ox 99% on R/A; iw ED Course: 10:07 Patient arrived in ED. as 10:13 [facility] kb 10:13 Bharat Aranda MD is Attending Physician. kb 10:21 Triage completed. iw 10:21 Arm band placed on. iw 10:40 Patient has correct armband on for positive identification. Bed in low position. Call ca1 light in reach. Side rails up X 1. Pulse ox on. NIBP on. Warm blanket given. 11:33 Patricia Giraldo, MIREYA is Primary Nurse. ca1 Administered Medications: No medications were administered Outcome: 12:16 Discharge ordered by MD. kb 12:33 Patient left the ED. iw Signatures: Laury Fox FNP-C FNP-Ckb Martinez, Amelia as Becca John, RN RN iw Patricia Giraldo RN RN ca1 Corrections: (The following items were deleted from the chart) 12:01 10:40 General: Appears in no apparent distress. comfortable, Behavior is calm, ca1 cooperative, appropriate for age, ca1 12:01 10:40 Pain: Complains of pain in back and chest ca1 ca1
--- NOTE | 2020-08-10 12:16 | EDPHYS ---
Physician Documentation [facility] – [place], [place] Name: Luz Freeman Age: 49 yrs Sex: Female : 1970 Arrival Date: 08/10/2020 Time: 10:07 Bed 12 Private MD: ED Physician Bharat Aranda HPI: 08/10 11:33 This 49 yrs old Female presents to ER via Ambulatory with complaints of Fever, kb Cough. 11:33 The patient or guardian reports cough, flu symptoms, low-grade fever, myalgias. Onset: kb The symptoms/episode began/occurred yesterday. Severity of symptoms: At their worst the symptoms were moderate, in the emergency department the symptoms are unchanged. Modifying factors: The symptoms are alleviated by nothing, the symptoms are aggravated by nothing. Associated signs and symptoms: Pertinent positives: fever, rhinorrhea. The patient has not experienced similar symptoms in the past. The patient has not recently seen a physician. Pt reports cough, congestion, fever, chills and body aches that started yesterday. Woke up with loss of smell so she came in. 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 - Social history:: Smoking status: Patient denies any tobacco usage or history of. ROS: 11:32 Constitutional: Positive for body aches, chills, fatigue, fever, malaise. kb 11:32 ENT: Positive for rhinorrhea, sinus congestion, loss of smell. 11:32 Respiratory: Positive for cough, Negative for dyspnea on exertion, hemoptysis, orthopnea, pleurisy, shortness of breath, sputum production, wheezing. 12:17 Cardiovascular: Negative for chest pain, palpitations, and edema, Abdomen/GI: Negative kb for abdominal pain, nausea, vomiting, diarrhea, and constipation, Back: Negative for injury and pain, MS/Extremity: Negative for injury and deformity, Skin: Negative for injury, rash, and discoloration, Neuro: Negative for headache, weakness, numbness, tingling, and seizure. Exam: 11:32 Constitutional: This is a well developed, well nourished patient who is awake, alert, kb and in no acute distress. Head/Face: Normocephalic, atraumatic. Chest/axilla: Normal chest wall appearance and motion. Nontender with no deformity. No lesions are appreciated. Cardiovascular: Regular rate and rhythm with a normal S1 and S2. No gallops, murmurs, or rubs. Normal PMI, no JVD. No pulse deficits. Respiratory: Lungs have equal breath sounds bilaterally, clear to auscultation and percussion. No rales, rhonchi or wheezes noted. No increased work of breathing, no retractions or nasal flaring. Abdomen/GI: Soft, non-tender, with normal bowel sounds. No distension or tympany. No guarding or rebound. No evidence of tenderness throughout. Skin: Warm, dry with normal turgor. Normal color with no rashes, no lesions, and no evidence of cellulitis. MS/ Extremity: Pulses equal, no cyanosis. Neurovascular intact. Full, normal range of motion. Neuro: Awake and alert, GCS 15, oriented to person, place, time, and situation. Cranial nerves II-XII grossly intact. Motor strength 5/5 in all extremities. Sensory grossly intact. Cerebellar exam normal. Normal gait. Vital Signs: 10:21 BP 149 / 93; Resp 18 S; Temp 98.2; Pulse Ox 99% on R/A; iw MDM: 10:25 Patient medically screened. kb 11:31 Data reviewed: vital signs, nurses notes. Data interpreted: Pulse oximetry: on room air kb is 99 %. Interpretation: normal. 12:16 Counseling: I had a detailed discussion with the patient and/or guardian regarding: the kb historical points, exam findings, and any diagnostic results supporting the discharge/admit diagnosis, lab results, the need for outpatient follow up, a family practitioner, to return to the emergency department if symptoms worsen or persist or if there are any questions or concerns that arise at home. 08/10 10:23 Order name: COVID-19 iw 08/10 10:23 Order name: Flu iw 08/10 12:16 Order name: COVID-19/FLU A+B; Complete Time: 12:16 EDMS Administered Medications: No medications were administered Disposition: 16:04 Co-signature as Attending Physician, Bharat Aranda MD. rn Disposition: 08/10/20 12:16 Discharged to Home. Impression: Coronavirus infection, unspecified. - Condition is Stable. - Discharge Instructions: Viral Respiratory Infection, [id number], COVID-19. - Medication Reconciliation Form, Thank You Letter, Antibiotic Education, Prescription Opioid Use, Work release form form. - Follow up: Emergency Department; When: As needed; Reason: Worsening of condition. Follow up: Private Physician; When: 2 - 3 days; Reason: Recheck today's complaints, Continuance of care, Re-evaluation by your physician. 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 [facility] 12:33 12:16 08/10/2020 12:16 Discharged to Home. Impression: Coronavirus infection, iw unspecified. Condition is Stable. Forms are Medication Reconciliation Form, Thank You Letter, Antibiotic Education, Prescription Opioid Use. Follow up: Emergency Department; When: As needed; Reason: Worsening of condition. Follow up: Private Physician; When: 2 - 3 days; Reason: Recheck today's complaints, Continuance of care, Re-evaluation by your physician. kb
[2020-08-10 12:37] VITALS: BP 149/93; TEMP 98.2; O2SAT 99
== END 2020-08-10 12:33 | disposition home or self-care (01) ==
LOC: ER 10:05
DX: U07.1 COVID-19 (principal)
CPT/HCPCS: 0240U; 99282

== ENCOUNTER 2023-11-01 18:45 | Emergency (ER) | payer SELFPAY ==
--- OUTSIDE RECORDS SUMMARY | 2023-11-01 18:48 | XMS REPORT | Continuity of Care Document ---
Author Name Unknown Address [address] [facility] [address] [place] [address] [facility] thconnect Address [address] [facility] [place] [address] Care Team Providers Care Funding Specialist Name Role Phone PCPNF, PCP NOT Primary Care Physician Unavailab RAGHU Rosas Attending Clinician Unavailable DAVEY CAMARGO Attending Clinician Unavailable DAVEY CAMARGO Attending Clinician Unavailable Doctor Unassigned, [place] Attending Clinician U navailJESSE Cadena Attending Clinician Unavailable JESSE STONE Attending Clinician Unavailable HELEN MONSON Attending Clinician Unavailable Kaley SUPERVISOR RIDE ASSEMBLYHelen Dowell Attending Clinician [phone] Lucho Mcadams Attending Clinician [phone] LUCHO WRIGHT Attending Clinician Unavailable JESSE STONE Admitting Clinician Unavailable HELEN MONSON Admitting Clinician Unavailable LUCHO WRIGHT Admitting Clinician Unavailable Problems Condition Name Condition Details Condition Category Status Onset Date Resolution Date Last Treatment Date Treating Clinician Comments Source No known active problems No known active problems Disease [facility] Allergies, Adverse Reactions, Alerts Allergy Name Allergy Type Status Severity Reaction(s) Onset Date Inactive Date Treating Clinician Comments Source NO KNOWN ALLERGIE S Drug Class Active [facility] Social History Social Habit Start Date Stop Date Quantity Comments Source Exposure to SARS-CoV-2 (event) 2022-11-01 00:00:00 2022-11-11 07:46:00 Not sure [facility] Tobacco use and exposure 2022-11-11 00:00:00 2022-11-11 00:00:00 Smokeless tobacco non-user [facility] Sex Assigned At 1970 00:00:00 1970 00:00:00 Female [facility] Smoking Status Start Date Stop Date Source Unknown if ever smoked [facility] Never smoked tobacco [facility] Medications Ordered Medication Name Filled Medication Name Start Date Stop Date Current Medication? Ordering Clinician Indication Dosage Frequency Signature (SIG) Comments Components Source Benzonatate (Tessalon) 100 Mg CAP 10-07 14:28: 00 No 100mg Three Times A Day as needed for Cough [facility] Guaifenesin /Dextrometh orphan (Robitussin Dm Liq) 5 Ml SYRP 10-07 14:28: 00 No 5mL Every 4 Hours as needed for Cold Symptoms [facility] Acetaminoph en (Tylenol) 500 Mg TAB 10-07 14:28: 00 No 500mg Every 4 Hours as needed for Pain [facility] HYDROCODONE -ACETAMINOP HEN 5-500 MG ORAL CAP 11-11 07:55: 55 Yes None Entered [facility] CIPROFLOXAC IN 500 MG ORAL TAB 11-11 07:55: 55 Yes None Entered [facility] diphenhydrA MINE (BENADRYL) injection 25 mg 10-31 14:48: 00 11-01 02:59 :00 No 25mg 25 mg, Slow IV Push, ONCE, 1 dose, On Tue10/31/22 at 1000, STAT [facility] iopamidol (ISOVUE 370-500 mL) injection 90 mL 10-31 13:30: 00 10-31 13:39 :00 No [id number] 90mL 90 mL, Intravenou s, ONCE, 1 dose, On Tue10/31/22 at 0830, Routine [facility] NaCl 0.9% (NS) bolus infusion 1,000 mL 10-31 13:30: 00 10-31 14:34 :00 No 1000mL at 999 mL/hr, 1,000 mL, IV Infusion, ONCE, 1 dose, [facility] Tue10/31/22 [facility] 0830[facility]FRAN (PF[facility] 4 mg 10-31 12:45: 00 10-31 12:47 :00 No 4mg 4 mg, Slow IV Push, ONCE, 1 dose, On Tue10/31/22 at 0745, [facility] ketorolac (TORADOL) injection 15 mg 10-31 12:38: 00 10-31 12:47 :00 No 15mg 15 mg, Slow IV Push, ONCE, 1 dose, On Tue10/31/22 at 0745, [facility] dicyclomine 20 mg tablet 10-31 00:00: 00 Yes [id number] 20mg Take 1 tablet by mouth 4 (four) times daily. [facility] ondansetron 4 mg tablet 10-31 00:00: 00 Yes [id number] 4mg Take 1 tablet by mouth every 8 (eight) hours as needed for Nausea and Vomiting (N/V) for up to 20 doses. [facility] benzonatate 100 mg capsule 10-15 00:00: 00 Yes [id number] 100mg Take 1 capsule by mouth 3 (three) times daily as needed for Cough. [facility] albuterol 90 mcg/actuati on inhaler 10-15 00:00: 00 Yes [id number] 2{puff} Inhale 2 Puffs every 4 (four) hours as needed for Wheezing or Shortness of Breath. [facility] predniSONE 20 mg tablet 10-15 00:00: 00 Yes [id number] 40mg Take 2 tablets by mouth in the morning. [facility] NaCl 0.9% (NS) bolus infusion 1,000 mL 07-22 02:00: 00 07-22 01:45 :00 No 1000mL at 999 mL/hr, 1,000 mL, IV Infusion, ONCE, 1 dose, On Tue07/21/22 at 1999, [facility] iopamidol (ISOVUE 370-500 mL) injection 75 mL 07-22 01:52: 00 07-22 02:15 :00 No [id number] 75mL 75 mL, Intravenou s, ONCE, 1 dose, On Tue07/21/22 at 2015, Routine [facility] acetaminoph en (TYLENOL) tablet 1,000 mg 07-22 01:15: 00 07-22 01:17 :00 No 1000mg 1,000 mg, Oral, ONCE, 1 dose, On Tue07/21/22 at 1915, Routine [facility] ibuprofen (IBU) tablet 800 mg 07-22 01:15: 00 07-22 01:17 :00 No 800mg 800 mg, Oral, ONCE, 1 dose, On Tue07/21/22 at 1915, [facility] ondansetron (ZOFRAN (PF)) injection 4 mg 07-22 00:38: 00 07-22 00:38 :00 No 4mg 4 mg, Slow IV Push, ONCE, 1 dose, On Tue07/21/22 at 1845, [facility] HYDROCODONE -ACETAMINOP HEN 5-500 MG ORAL CAP 07-21 16:21: 59 Yes None Entered [facility] CIPROFLOXAC IN 500 MG ORAL TAB 07-21 16:21: 59 Yes None Entered [facility] ondansetron 4 mg disintegrat ing tablet 07-21 00:00: 00 Yes [id number] 4mg Take 1 tablet by mouth every 8 (eight) hours as needed for Nausea and Vomiting (N/V). [facility] levoFLOXaci n 750 mg tablet 07-21 00:00: 00 Yes [id number] 750mg Take 1 tablet by mouth every 24 (twenty-fo ur) hours. [facility] dicyclomine 20 mg tablet 1-04 00:00: 00 10-31 00:00 :00 No [id number] 20mg Take 1 tablet by mouth 4 (four) times daily as needed for Abdominal pain. [facility] benzonatate 100 mg capsule 10-01 00:00: 00 Yes [id number] 100mg Take 1 capsule by mouth 3 (three) times daily as needed for Cough. [facility] acetaminoph en-codeine 300-30 mg tablet 10-01 00:00: 00 Yes [id number] 1{tbl} Take 1-2 tablets by mouth every 6 (six) hours as needed (cough). [facility] loratadine- pseudoephed rine (CLARITIN-D 24 HOUR) 10-240 mg per 24 hr tablet 10-01 00:00: 00 Yes [id number] 1{tbl} Take 1 tablet by mouth daily. [facility] montelukast 10 mg tablet 10-01 00:00: 00 Yes [id number] 10mg Take 1 tablet by mouth daily. [facility] Vital Signs Vital Name Observation Time Observation Value Comments S ource Body Temperature 2023-10-08 14:34:00 100.9 [degF] [facility] Heart Rate 2023-10-08 14:34:00 84 /min [facility] Respiratory rate 2023-10-08 14:34:00 18 /min [facility] BP Systolic 2023-10-08 14:34:00 128 mm[Hg] [facility] BP Diastolic 2023-10-08 14:34:00 56 mm[Hg] [facility] Height 2023-10-08 12:07:00 162.745450 cm [facility] Weight 2023-10-08 12:07:00 99.062886 kg [facility] BMI (Body Mass Index) 2023-10-08 12:07:00 37.8 kg/m2 [facility] Systolic blood pressure 2022-11-11 13:02:00 150 mm[Hg] [facility] Diastolic blood pressure 2022-11-11 13:02:00 80 mm[Hg] [facility] Heart rate 2022-11-11 13:02:00 71 /min [facility] Body temperature 2022-11-11 12:59:00 36.72 Chloe [facility] Respiratory rate 2022-11-11 12:59:00 16 /min [facility] Body height 2022-11-11 12:59:00 170.2 cm [facility] Body weight 2022-11-11 12:59:00 112.492 kg [facility] BMI 2022-11-11 12:59:00 38.84 kg/m2 [facility] Oxygen saturation in Arterial blood by Pulse oximetry 2022-11-11 12:59:00 97 /min [facility] Systolic blood pressure 2022-10-31 13:45:00 128 mm[Hg] [facility] Diastolic blood pressure 2022-10-31 13:45:00 77 mm[Hg] [facility] Heart rate 2022-10-31 13:45:00 69 /min [facility] Respiratory rate 2022-10-31 13:45:00 26 /min [facility] Oxygen saturation in Arterial blood by Pulse oximetry 2022-10-31 13:45:00 95 /min [facility] Body temperature 2022-10-31 12:15:00 37 Chloe [facility] Body height 2022-10-31 12:15:00 162.6 cm [facility] Body weight 2022-10-31 12:15:00 110.224 kg [facility] BMI 2022-10-31 12:15:00 41.71 kg/m2 [facility] Systolic blood pressure 2022-10-16 00:47:00 150 mm[Hg] [facility] Diastolic blood pressure 2022-10-16 00:47:00 80 mm[Hg] [facility] Heart rate 2022-10-16 00:47:00 63 /min [facility] Body temperature 2022-10-16 00:47:00 37 Chloe [facility] Respiratory rate 2022-10-16 00:47:00 18 /min [facility] Body height 2022-10-16 00:47:00 162.6 cm [facility] Body weight 2022-10-16 00:47:00 113.399 kg [facility] BMI 2022-10-16 00:47:00 42.91 kg/m2 [facility] Oxygen saturation in Arterial blood by Pulse oximetry 2022-10-16 00:47:00 98 /min [facility] Body temperature 2022-07-22 02:39:00 38.61 Chloe [facility] Heart rate 2022-07-22 02:27:00 102 /min [facility] Respiratory rate 2022-07-22 02:27:00 21 /min [facility] Oxygen saturation in Arterial blood by Pulse oximetry 2022-07-22 02:27:00 94 /min [facility] Systolic blood pressure 2022-07-22 01:15:00 150 mm[Hg] [facility] Diastolic blood pressure 2022-07-22 01:15:00 79 mm[Hg] [facility] Body height 2022-07-21 22:21:00 162.6 cm [facility] Body weight 2022-07-21 22:21:00 108.863 kg [facility] BMI 2022-07-21 22:21:00 41.20 kg/m2 [facility] Procedures Procedure Date / Time Performed Performing Clinicia n Source CONSENT/REFUSAL FOR DIAGNOSIS AND TREATMENT 2022-11-11 12:48:08 Doctor Unassigned, [place] [facility] EKG-12 LEAD 2022-10-31 14:43:13 Jesse Stone [facility] POCT TEST 2022-10-31 13:46:00 Jesse Stone [facility] URINALYSIS 2022-10-31 13:44:00 Jesse Stone [facility] CT ABDOMEN PELVIS W CONTRAST 2022-10-31 13:38:42 Jesse Stone [facility] LIPASE 2022-10-31 12:40:00 Jesse Stone [facility] COMP. METABOLIC PANEL ([id number]) 2022-10-31 12:40:00 Jesse Stone [facility] CBC WITH DIFF 2022-10-31 12:40:00 Jesse Stone [facility] CONSENT/REFUSAL FOR DIAGNOSIS AND TREATMENT 2022-10-31 12:10:53 Doctor Unassigned, [place] [facility] XR CHEST 2 VW 2022-10-16 01:09:32 Helen Monson [facility] RAPID STREP SCREEN FOR GROUP A 2022-10-16 00:56:00 [facility] RAPID INFLUENZA A/B 2022-10-16 00:56:00 [facility] COVID-19 (ID NOW RAPID TESTING) 2022-10-16 00:56:00 [facility] NOTICE OF PRIVACY PRACTICES 2022-10-16 00:43:23 Doctor Unassigned, [place] [facility] CONSENT/REFUSAL FOR DIAGNOSIS AND TREATMENT 2022-10-16 00:43:06 Doctor Unassigned, [place] [facility] EKG-12 LEAD 2022-07-22 02:39:47 Lucho Wright [facility] XR CHEST 1 VW 2022-07-22 02:01:00 Lucho Wright [facility] CT ABDOMEN PELVIS W CONTRAST 2022-07-22 01:55:00 Lucho Wright [facility] LIPASE 2022-07-22 00:39:00 Lucho Wright [facility] TROPONIN I 2022-07-22 00:39:00 Lucho Wright [facility] COMP. METABOLIC PANEL ([id number]) 2022-07-22 00:39:00 Lucho Wright [facility] CBC WITH DIFF 2022-07-22 00:39:00 Lucho Wright [facility] N-TERMINAL PRO-BNP 2022-07-22 00:39:00 Evelyn Wright [facility] URINALYSIS 2022-07-21 23:16:00 [facility]B 2022-07-21 23:16:00 Echo Wright [facility] COVID-19 (ID NOW RAPID TESTING) 2022-07-21 23:16:00 Lucho Wright [facility] ASSIGNMENT OF BENEFITS 2022-07-21 23:01:45 Docto r Unassigned, [place] [facility] Encounters Start Date/Time End Date/Time Encounter Type Admission Type Attending [facility] Care Facility Care Department Encounter ID Source 2023-10-08 11:56:00 2023-10-08 14:40:00 Departed Emergency Room [facility] HCIS [id number] [facility] 2023-10-08 11:56:00 2023-10-08 14:40:00 Emergency ER RAGHU GUZMÁN [facility] [id number] [facility] 2022-11-18 00:00:00 2022-11-18 00:00:00 [id number] 2022-11-11 08:30:00 2022-11-11 09:00:05 [facility] [id number] [facility] 2022-11-11 08:30:00 2022-11-11 09:00:05 Office Visit [facility] 1..840.114 350.1.13.10 4.2.7.2.686 [id number] [facility] 2022-11-11 00:00:00 2022-11-11 00:00:00 Orders Only Doctor Unassigned, [place] [facility] 1..840.114 350.1.13.10 4.2.7.2.686 [id number] [facility] 2022-10-31 07:17:00 2022-10-31 09:57:00 Emergency X JESSE STONE [facility] ERT [id number] [facility] 2022-10-31 07:17:00 2022-10-31 09:57:00 Emergency Jesse Stone [facility] [id number] 350.1.13.10 4.2.7.2.686 [id number] [facility] 2022-10-15 19:51:00 2022-10-15 21:55:00 Emergency X HELEN MONSON [facility] ERT [id number] [facility] 2022-10-15 19:51:00 2022-10-15 21:55:00 Emergency Helen Monson [facility] [id number] 350.1.13.10 4.2.7.2.686 [id number] [facility] 2022-10-15 00:00:00 2022-10-15 00:00:00 Orders Only Doctor Unassigned, [place] [facility] 1.2.840.114 350.1.13.10 4.2.7.2.686 [id number] [facility] 2022-07-21 16:23:00 2022-07-21 20:41:00 Emergency Lucho Wright [facility] 1.2.840.114 350.1.13.10 4.2.7.2.686 [id number] [facility] 2022-07-21 16:23:00 2022-07-21 20:41:00 Emergency X LUCHO WRIGHT [facility] ERT [id number] [facility] Results Test Description Test Time Test Comments Results Result Co mments Source CFCFLUBV RNA Nph Ql GERARD+[id number] 12:05:00* Test Item Value Reference Range Interpretation Comme nts Influenza Virus Type B (PCR) (test code = 18646-2) Negative Negative CFCRSV RNA Nph Ql GERARD+bci-[id number] 12:05:00* Test Item Value Reference Range Interpretation Comme nts Respiratory Syncytial Virus (PCR) (test code = 81148-6) Negative Negative CFCSpecimen source [id number] 12:05:00* Test Item Value Reference Range Interpretation Comme nts Respiratory Virus Source (test code = 97235-0) Nasopharyngeal swab [id number]-[id number] RNA Resp Ql GERARD+[id number] 12:05:00* Test Item Value Reference Range Interpretation Comme nts Coronavirus (COVID-19)(PCR) (test code = 32152-3) Negative Negative CFCPOCT [id number] 13:46:00* Test Item Value Reference Range Interpretation Comme nts POCT PREG (test code = 1605) negative On board controls acceptable with C Line (test code = 3574) present POCT PREG LOT # (test code = [id number] [id number] POCT PREG TEST DATE ( test code = 3576) 04/22/2024 Lab Interpretation (test cod e = 03884-4) Normal [facility] (21285)2022-10-31 13:14:24* Test Item Value Reference Range Interpretation Comme nts NA (test code = 5700057155) 139 mmol/L 135-145 K (test code = 6220038950) 4.4 mmol/L 3.5-5.0 CL (test code = 6894324067) 104 mmol/L 98-108 CO2 TOTAL (test code = 4865211586) 24 mmol/L 23-31 AGAP (test code = 9958055466) 11 2-16 BUN (test code = 8552231415) 15 mg/dL 7-23 GLUCOSE (test code = 2441721541) 102 mg/dL 70-110 CREATININE (test code = 5739031258) 0.74 mg/dL 0.50-1.04 TOTAL BILI (test code = 4113121789) 0.5 mg/dL 0.1-1.1 CALCIUM (test code = 4748572105) 9.2 mg/dL 8.6-10.6 T PROTEIN (test code = 5514623502) 7.5 g/dL 6.3-8.2 ALBUMIN (test code = 4841800272) 4.0 g/dL 3.5-5.0 ALK PHOS (test code = 3576473370) 71 U/L 34-122 ALTv (test code = 1742-6) 51 U/L 5-35 H AST(SGOT) (test code = 4904276666) 57 U/L 13-40 H eGFR (test code = 6030357387) 81.8 mL/min/1.73m2 OSITO (test code = OSITO) Association of Glomerular Filtration Rate (GFR) and Staging of Kidney Disease* + --+ --+ ------+| GFR (mL/min/1.73 m2) ?| With Kidney Damage ?| ?Without Kidney Damage+ --------+ --------+ +| ?>90 ?| ?Stage one ?| ? Normal ?+ ---+ ---+ -------+| ?60-89 ?| ?Stage two ?| ? Decreased GFR ? + --+ --+ ------+| ?30-59 ?| ?Stage three ?| ? Stage three ? + --+ --+ ------+| ?15-29 ?| ?Stage four ? | ? Stage four ?+ ---+ ---+ -------+| ?<15 (or dialysis) ? ?| ?Stage five ? | ? Stage five ?+ ---+ ---+ -------+ *Each stage assumes the associated GFR level has been in effect for at least three months. ?Stages 1 to 5, with or without kidney disease, indicate chronic kidney disease. Notes: Determination of stages one and two (with eGFR >59mL/min/1.73 m2) requires estimation of kidney damage for at least three months as defined by structural or functional abnormalities of the kidney, manifested by either:Pathological abnormalities or Markers of kidney damage (including abnormalities in the composition of the blood or urine or abnormalities in imaging tests). Lab Interpretation (test code = 65998-0) [facility]normal [facility] 13:14:24* Test Item Value Reference Range Interpretation Comme nts LIPASE (test code = 8385498502) 76 U/L 0-220 Lab Interpretation (test cod e = 45618-5) Normal [facility] WITH [id number] 13:02:59* Test Item Value Reference Range Interpretation Comme nts WBC (test code = 6690-2) 10.05 See_Comment [Automated messa ge] The system which generated this result transmitted reference range: 4.30 - 11.10 10*3/?L. The reference range was not used to interpret this result as normal/abnormal. RBC (test code = 789-8) 4.67 See_Comment [Automated messa ge] The system which generated this result transmitted reference range: 3.93 - 5.25 10*6/?L. The reference range was not used to interpret this result as normal/abnormal. HGB (test code = 718-7) 13.7 g/dL 11.6-15.0 HCT (test code = 4544-3) 42.1 % 35.7-45.2 MCV (test code = 787-2) 90.1 fL 80.6-95.5 MCH (test code = 785-6) 29.3 pg 25.9-32.8 MCHC (test code = 786-4) 32.5 g/dL 31.6-35.1 RDW-SD (test code = 64483-6) 46.2 fL 39.0-49.9 RDW-CV (test code = 788-0) 14.0 % 12.0-15.5 PLT (test code = 777-3) 255 See_Comment [Automated messa ge] The system which generated this result transmitted reference range: 166 - 358 10*3/?L. The reference range was not used to interpret this result as normal/abnormal. MPV (test code = 37221-7) 12.2 fL 9.5-12.9 NRBC/100 WBC (test code = 7324592079) 0.0 See_Comment [Automated [employer] ssage] The system which generated this result transmitted reference range: 0.0 - 10.0 /100 WBCs. The reference range was not used to interpret this result as normal/abnormal. NRBC x10^3 (test code = 3993287048) See_Comment [Automated messa ge] The system which generated this result transmitted reference range: 10*3/?L. The reference range was not used to interpret this result as normal/abnormal. GRAN MAT (NEUT) % (test code = 770-8) 63.9 % IMM GRAN % (test code = 9214268453) 0.30 % LYMPH % (test code = 736-9) 23.9 % MONO % (test code = 5905-5) 10.2 % EOS % (test code = 713-8) 1.4 % BASO % (test code = 706-2) 0.3 % GRAN MAT x10^3(ANC) (test code = 7428787310) 6.42 10*3/uL 1.88-7.09 IMM GRAN x10^3 (test code = 0886234014) 0.03 10*3/uL 0.00-0.06 LYMPH x10^3 (test code = 731-0) 2.40 10*3/uL 1.32-3.29 MONO x10^3 (test code = 742-7) 1.03 10*3/uL 0.33-0.92 H EOS x10^3 (test code = 711-2) 0.14 10*3/uL 0.03-0.39 BASO x10^3 (test code = 704-7) 0.03 10*3/uL 0.01-0.07 Lab Interpretation (test code = 26505-4) Abnormal [facility] [id number] 01:12:00* Test Item Value Reference Range Interpretation Comments TROPONIN I (test code = 9013081341) 0.004 ng/mL See_Comment [Automated message] The system which generated this result transmitted reference range: <=0.034. The reference range was not used to interpret this result as normal/abnormal. OSITO (test code = OSITO) Reference (Normal) Range (defined by the 99th percentile reference limit): <= 0.034 ng/mL Note: Cardiac troponin begins to rise 3-4 hours after the onset of ischemia. Repeat in 4-6 hours if the sample was drawn within 3-4 hours of the onset of the symptom and found normal. Diagnosis of myocardial injury is made with acute changes in cTn concentrations with at least one serial sample above the 99th percentile upper reference limit (URL), taken together with the patient's clinical presentation. Biotin has been reported to cause a negative bias, interpret results relative to patient's use of biotin. Lab Interpretation (test code = 97888-3) Normal [facility] [id number] 01:08:43* Test Item Value Reference Range Interpretation Comme nts NT-proBNP (test code = 9490040534) 72 pg/mL See_Comment [Automated message] The system which generated this result transmitted reference range: <=125. The reference range was not used to interpret this result as normal/abnormal. OSITO (test code = OSITO) Biotin has been reported to cause a negative bias, interpret results relative to patient's use of biotin. Lab Interpretation (test code = 93465-1) Normal [facility] (95761)2022-07-22 01:00:19* Test Item Value Reference Range Interpretation Comme nts NA (test code = 7461929999) 141 mmol/L 135-145 K (test code = 9808707468) 5.0 mmol/L 3.5-5.0 CL (test code = 1503327212) 106 mmol/L 98-108 CO2 TOTAL (test code = 0356991381) 24 mmol/L 23-31 AGAP (test code = 9727707896) 2-16 BUN (test code = 5154683836) 17 mg/dL 7-23 GLUCOSE (test code = 5358713954) 107 mg/dL 70-110 CREATININE (test code = 4068490361) 0.80 mg/dL 0.50-1.04 TOTAL BILI (test code = 2845075864) 0.8 mg/dL 0.1-1.1 CALCIUM (test code = 9802937627) 8.9 mg/dL 8.6-10.6 T PROTEIN (test code = 0415512407) 8.6 g/dL 6.3-8.2 H ALBUMIN (test code = 3660530472) 4.3 g/dL 3.5-5.0 ALK PHOS (test code = 4188298614) 100 U/L 34-122 ALTv (test code = 1742-6) 25 U/L 5-35 AST(SGOT) (test code = 8480906400) 36 U/L 13-40 eGFR (test code = 1623525790) mL/min/1.73m2 OSITO (test code = OSITO) Association of Glomerular Filtration Rate (GFR) and Staging of Kidney Disease* + --+ --+ ------+| GFR (mL/min/1.73 m2) ?| With Kidney Damage ?| ?Without Kidney Damage+ --------+ --------+ +| ?>90 ?| ?Stage one ?| ? Normal ?+ ---+ ---+ -------+| ?60-89 ?| ?Stage two ?| ? Decreased GFR ? + --+ --+ ------+| ?30-59 ?| ?Stage three ?| ? Stage three ? + --+ --+ ------+| ?15-29 ?| ?Stage four ? | ? Stage four ?+ ---+ ---+ -------+| ?<15 (or dialysis) ? ?| ?Stage five ? | ? Stage five ?+ ---+ ---+ -------+ *Each stage assumes the associated GFR level has been in effect for at least three months. ?Stages 1 to 5, with or without kidney disease, indicate chronic kidney disease. Notes: Determination of stages one and two (with eGFR >59mL/min/1.73 m2) requires estimation of kidney damage for at least three months as defined by structural or functional abnormalities of the kidney, manifested by either:Pathological abnormalities or Markers of kidney damage (including abnormalities in the composition of the blood or urine or abnormalities in imaging tests). Lab Interpretation (test code = 00469-3) [facility]* Test Item Value Reference Range Interpretation Comme nts LIPASE (test code = 4430401713) 107 U/L 0-220 Lab Interpretation (test cod e = 25081-1) Normal [facility] [id number] 00:47:58* Test Item Value Reference Range Interpretation Comme nts WBC (test code = 6690-2) See_Comment H [Automated message] The system which generated this result transmitted reference range: 4.30 - 11.10 10*3/?L. The reference range was not used to interpret this result as normal/abnormal. RBC (test code = 789-8) See_Comment [Automated message] The system which generated this result transmitted reference range: 3.93 - 5.25 10*6/?L. The reference range was not used to interpret this result as normal/abnormal. HGB (test code = 718-7) 13.8 g/dL 11.6-15.0 HCT (test code = 4544-3) 43.8 % 35.7-45.2 MCV (test code = 787-2) 92.2 fL 80.6-95.5 MCH (test code = 785-6) 29.1 pg 25.9-32.8 MCHC (test code = 786-4) 31.5 g/dL 31.6-35.1 L RDW-SD (test code = 73814-9) 47.1 fL 39.0-49.9 RDW-CV (test code = 788-0) 13.7 % 12.0-15.5 PLT (test code = 777-3) See_Comment [Automated message] The system which generated this result transmitted reference range: 166 - 358 10*3/?L. The reference range was not used to interpret this result as normal/abnormal. MPV (test code = 62998-6) 12.0 fL 9.5-12.9 NRBC/100 WBC (test code = 6079124379) See_Comment [Automated message] The system which generated this result transmitted reference range: 0.0 - 10.0 /100 WBCs. The reference range was not used to interpret this result as normal/abnormal. NRBC x10^3 (test code = 5623168857) See_Comment [Automated message] The system which generated this result transmitted reference range: 10*3/?L. The reference range was not used to interpret this result as normal/abnormal. GRAN MAT (NEUT) % (test code = 770-8) 84.3 % IMM GRAN % (test code = 6940388228) 0.90 % LYMPH % (test code = 736-9) 11.2 % MONO % (test code = 5905-5) 2.8 % EOS % (test code = 713-8) 0.4 % BASO % (test code = 706-2) 0.4 % GRAN MAT x10^3(ANC) (test code = 2880848720) 11.75 10*3/uL 1.88-7.09 H IMM GRAN x10^3 (test code = 2171247992) 0.12 10*3/uL 0.00-0.06 H LYMPH x10^3 (test code = 731-0) 1.56 10*3/uL 1.32-3.29 MONO x10^3 (test code = 742-7) 0.39 10*3/uL 0.33-0.92 EOS x10^3 (test code = 711-2) 0.06 10*3/uL 0.03-0.39 BASO x10^3 (test code = 704-7) 0.05 10*3/uL 0.01-0.07 Lab Interpretation (test code = 03579-9) Abnormal [facility]"
[2023-11-01] MEDS ORDERED: ALBUTEROL 2.5 MG/3 ML NEB SOL ONE (19:22)
[2023-11-01] MEDS ORDERED: HYDROCODONE/CHLORPHEN 5 ML/OSYR ONE (19:22)
--- NOTE | 2023-11-01 20:48 | RAD REPORT ---
EXAM DESCRIPTION: [place]oss[place] Single View11/01/2023 8:02 pm CLINICAL HISTORY: COUGH COMPARISON: Chest Single View dated 06/21/2017 TECHNIQUE: Portable AP view of the chest. FINDINGS: Decreased penetration particularly along the right base somewhat limits evaluation. The levar ngs are clear. No pneumothorax or effusion. The cardiomediastinal contours are unremarkable. IMPRESSION: No acute cardiopulmonary process.
--- NOTE | 2023-11-01 22:02 | ER ---
Nurse's Notes [facility] Name: Luz Freeman Age: 53 yrs Sex: Female : 1970 Arrival Date: 11/01/2023 Time: 18:45 Bed 18 Private MD: Diagnosis: Cough Presentation: 10/31 19:11 Chief complaint: Patient states: cough for several weeks that hasn't gone away. as6 Coronavirus screen: At this time, the client does not indicate any symptoms associated with coronavirus-19. Ebola Screen: No symptoms or risks identified at this time. Initial Sepsis Screen: Does the patient meet any 2 criteria? No. Patient's initial sepsis screen is negative. Does the patient have a suspected source of infection? No. Patient's initial sepsis screen is negative. Risk Assessment: Do you want to hurt yourself or someone else? Patient reports no desire to harm self or others. Onset of symptoms was October 17, 2023. 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 - Infectious Disease History:: Denies. - Social history:: Smoking status: Patient denies any tobacco usage or history of. Screenin:15 [facility] ED Fall Risk Assessment (Adult) History of falling in the last 3 months, mb9 including since admission No falls in past 3 months (0 pts) Confusion or Disorientation No (0 pts) Intoxicated or Sedated No (0 pts) Impaired Gait No (0 pts) Mobility Assist Device Used No (0 pt) Altered Elimination No (0 pt) Score/Fall Risk Level 0 - 2 = Low Risk Oriented to surroundings, Maintained a safe environment, Educated pt \T\ family on fall prevention, incl call for assistance when getting out of bed, Assessed \T\ reinforced patient's understanding of fall precautions. Abuse screen: Denies threats or abuse. Nutritional screening: No deficits noted. Tuberculosis screening: No symptoms or risk factors identified. Assessment: 19:27 General: Appears in no apparent distress. Behavior is calm, cooperative. Pain: Denies mb9 pain. Neuro: Walter Agitation-Sedation Scale (RASS): 0 - Alert and Calm Level of Consciousness is awake, alert, obeys commands, Oriented to person, place, time, situation, Appropriate for age. Cardiovascular: Patient's skin is warm and dry. Respiratory: Reports cough that is non-productive, Airway is patent Respiratory effort is even, unlabored, Respiratory pattern is regular, symmetrical, Breath sounds are clear bilaterally. GI: No signs and/or symptoms were reported involving the gastrointestinal system. : No signs and/or symptoms were reported regarding the genitourinary system. EENT: No signs and/or symptoms were reported regarding the EENT system. Derm: Skin is pink, warm \T\ dry. Musculoskeletal: Range of motion: intact in all extremities. 21:04 Reassessment: Assumed care of patient at this time. Pt currently speaking on phone. Pt cm10 states that she feels much better. Updated pt on plan of care, no needs at this time. General: Appears in no apparent distress. comfortable, Behavior is calm, cooperative. Neuro: No deficits noted. Level of Consciousness is awake, alert, obeys commands, Oriented to person, place, time, situation, Appropriate for age. Respiratory: No deficits noted. Reports cough that is non-productive, Airway is patent Respiratory effort is even, unlabored, Respiratory pattern is regular, symmetrical. Derm: No deficits noted. Skin is intact, Skin is pink, warm \T\ dry. Musculoskeletal: No deficits noted. Range of motion: intact in all extremities. 22:13 Reassessment: Patient appears in no apparent distress at this time. No changes from cm10 previously documented assessment. Patient and/or family updated on plan of care and expected duration. Pain level reassessed. Patient is alert, oriented x 3, equal unlabored respirations, skin warm/dry/pink. Patient states feeling better. Patient states symptoms have improved. Vital Signs: 19:09 Pulse 74; Resp 18 S; Temp 97.4(TE); Pulse Ox 99% on R/A; Weight 108.86 kg (R); Height 5 as6 ft. 4 in. (R); Pain 0/10; 19:11 BP 148 / 76; as6 19:09 Body Mass Index 41.20 (108.86 kg, 162.56 cm) as6 19:09 Pain Scale: Adult as6 ED Course: 18:48 Patient arrived in ED. mg5 19:00 [facility]C [facility] kb 19:00 Ender Marino MD is Attending Physician. kb 19:09 Arm band placed on. as6 19:12 Triage completed. as6 19:12 Guera Velez, RN is Primary Nurse. mb9 19:14 Placed in gown. Bed in low position. Call light in reach. Side rails up X 1. Provided mb9 Education on: press call light if needing anything. Client placed on continuous cardiac and pulse oximetry monitoring. NIBP monitoring applied. 19:17 No provider procedures requiring assistance completed. mb9 19:26 Strep Sent. mb9 20:04 Chest Single View XRAY In Process Unspecified. EDMS 20:54 Report given to MIREYA Alfaro. mb9 21:03 Primary Nurse role handed off by Guera Velez, MIREYA cm10 21:03 Angelina Molina RN is Primary Nurse. cm10 22:13 Patient did not have IV access during this emergency room visit. cm10 Administered Medications: 19:26 Drug: Tussionex Pennkinetic ER PO Suspension 5 ml PO once Route: PO; mb9 19:51 Follow up: Response: No adverse reaction mb9 19:26 Drug: Albuterol Inhalation 2.5 mg Inhalation once Route: Inhalation; mb9 19:52 Follow up: Response: No adverse reaction mb9 Medication: 19:14 VIS not applicable for this client. mb9 Outcome: 22:01 Discharge ordered by . kb 22:13 Discharged to home ambulatory, cm10 22:13 Condition: good 22:13 Discharge instructions given to patient, Instructed on discharge instructions, follow up and referral plans. Demonstrated understanding of instructions, follow-up care, 22:13 Patient left the ED. cm10 Signatures: Dispatcher [employer] EDMD Laury Fox FNP-C FNP-Ckb Slawson, Ashby, RN RN as6 Guera Velez, Angelina Monae RN, RN RN cm10 Tamara Stoner mg5
--- NOTE | 2023-11-01 22:02 | EDPHYS ---
Physician Documentation [facility] Name: Luz Freeman Age: 53 yrs Sex: Female : 1970 Arrival Date: 11/01/2023 Time: 18:45 Bed 18 Private MD: ED Physician Ender Marino HPI: 10/31 22:39 This 53 yrs old Female presents to ER via Ambulatory with complaints of Flu kb Symptoms. 22:39 Pt is a 53 year old female who presents for cough for 3-4 weeks and sore throat that kb started this week. Reports exposure to strep. Denies fever. States she believes this started out as the flu and the cough just hasn't gone away. 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 - Infectious Disease History:: Denies. - Social history:: Smoking status: Patient denies any tobacco usage or history of. ROS: 22:39 Constitutional: As per HPI kb Exam: 22:39 Constitutional: This is a well developed, well nourished patient who is awake, alert, kb and in no acute distress. Head/Face: Normocephalic, atraumatic. ENT: Moist Mucous membranes Cardiovascular: Regular rate Respiratory: Respirations even and unlabored. No increased work of breathing. Talking in full sentences Abdomen/GI: Soft, non-tender. No distention Skin: Warm, dry with normal turgor. Normal color. MS/ Extremity: Pulses equal, no cyanosis. Neurovascular intact. Full, normal range of motion. Neuro: Awake and alert, GCS 15, oriented to person, place, time, and situation. Moves all extremities. Normal gait. Vital Signs: 19:09 Pulse 74; Resp 18 S; Temp 97.4(TE); Pulse Ox 99% on R/A; Weight 108.86 kg (R); Height 5 as6 ft. 4 in. (R); Pain 0/10; 19:11 BP 148 / 76; as6 19:09 Body Mass Index 41.20 (108.86 kg, 162.56 cm) as6 19:09 Pain Scale: Adult as6 MDM: 19:02 Patient medically screened. kb 22:39 Differential Diagnosis: Bronchitis Influenza Upper Respiratory Infection Pneumonia kb Other strep. Data reviewed: vital signs, nurses notes. Counseling: I had a detailed discussion with the patient and/or guardian regarding the historical points, exam findings, and any diagnostic results supporting the discharge/admit diagnosis, lab results, radiology results, the need for outpatient follow up, a family practitioner, to return to the emergency department if symptoms worsen or persist or if there are any questions or concerns that arise at home. 10/31 19:21 Order name: Strep; Complete Time: 22:01 kb 10/31 21:10 Order name: Throat Culture EDOK 10/31 19:21 Order name: Chest Single View XRAY; Complete Time: 20:50 kb Administered Medications: 19:26 Drug: Tussionex Pennkinetic ER PO Suspension 5 ml PO once Route: PO; mb9 19:51 Follow up: Response: No adverse reaction mb9 19:26 Drug: Albuterol Inhalation 2.5 mg Inhalation once Route: Inhalation; mb9 19:52 Follow up: Response: No adverse reaction mb9 Disposition Summary: 11/01/23 22:01 Discharge Ordered Notes: Location: Home kb Condition: Stable kb Diagnosis - Cough kb Followup: kb - With: Emergency Department - When: As needed - Reason: Worsening of condition Followup: kb - With: Private Physician - When: 2 - 3 days - Reason: Recheck today's complaints, Continuance of care, Re-evaluation by your physician Discharge Instructions: - Discharge Summary Sheet kb - Cough, Adult, [id number] kb Forms: - Medication Reconciliation Form kb - Thank You Letter kb - Antibiotic Education kb - Prescription Opioid Use kb - Patient Portal Instructions kb - Leadership Thank You Letter kb Signatures: Dispatcher [employer] EDLaury Llamas FNP-C FNP-Adolfo Healy RN RN as6 Guera Velez RN RN mb9
[2023-11-02 08:05] VITALS: BP 148/76; TEMP 97.4; O2SAT 99
== END 2023-11-01 22:13 | disposition home or self-care (01) ==
LOC: ER 18:45
DX: R05.9 Cough, unspecified (principal)
CPT/HCPCS: 71045; 87070; 87081; J7613

== ENCOUNTER 2024-04-17 12:58 | Emergency (ER) | payer OTHER, SELFPAY ==
--- OUTSIDE RECORDS SUMMARY | 2024-04-17 13:02 | XMS REPORT | Continuity of Care Document ---
Author Name Unknown Address [address] [facility] [address] [place] [address] [facility] thconnect Address [address] [place] [address] Care Team Providers Care Physical Meteorologist Name Role Phone FOUND, PCP NOT Primary Care Physician Unavailab RAGHU Rosas Attending Clinician Unavailable DAVEY CAMARGO Attending Clinician Unavailable DAVEY CAMARGO Attending Clinician Unavailable Doctor Unassigned, [place] Attending Clinician U navailJESSE Cadena Attending Clinician Unavailable JESSE STONE Attending Clinician Unavailable HELEN MONSON Attending Clinician Unavailable Helen Gao Attending Clinician [phone] Lucho Mcadams Attending Clinician [phone] LUCHO WRIGHT Attending Clinician Unavailable Osei Felix MD Attending Clinician [phone] JESSE STONE Admitting Clinician Unavailable HELEN MONSON Admitting Clinician Unavailable LUCHO WRIGHT Admitting Clinician Unavailable Problems Condition Name Condition Details Condition Category Status Onset Date Resolution Date Last Treatment Date Treating Clinician Comments Source No known active problems No known active problems Disease [facility] Allergies, Adverse Reactions, Alerts Allergy Name Allergy Type Status Severity Reaction(s) Onset Date Inactive Date Treating Clinician Comments Source NO KNOWN ALLERGIE S Drug Class Active [facility] Social History Social Habit Start Date Stop Date Quantity Comments Source Exposure to SARS-CoV-2 (event) 2022-11-01 00:00:00 2022-11-11 07:46:00 Not sure [facility] Tobacco use and exposure 2022-11-11 00:00:00 2022-11-11 00:00:00 Smokeless tobacco non-user [facility] Sex Assigned At 1970 00:00:00 1970 00:00:00 Female [facility] Smoking Status Start Date Stop Date Source Unknown if ever smoked [facility] Never smoked tobacco [facility] Medications Ordered Medication Name Filled Medication Name Start Date Stop Date Current Medication? Ordering Clinician Indication Dosage Frequency Signature (SIG) Comments Components Source Acetaminoph en (Tylenol) 500 Mg TAB 10-07 14:28: 00 No 500mg Every 4 Hours as needed for Pain [facility] Benzonatate (Tessalon) 100 Mg CAP 10-07 14:28: 00 No 100mg Three Times A Day as needed for Cough [facility] Guaifenesin /Dextrometh orphan (Robitussin Dm Liq) 5 Ml SYRP 10-07 14:28: 00 No 5mL Every 4 Hours as needed for Cold Symptoms [facility] HYDROCODONE -ACETAMINOP HEN 5-500 MG ORAL CAP 11-11 07:55: 55 Yes None Entered [facility] CIPROFLOXAC IN 500 MG ORAL TAB 11-11 07:55: 55 Yes None Entered [facility] diphenhydrA MINE (BENADRYL) injection 25 mg 10-31 14:48: 00 11-01 02:59 :00 No 25mg 25 mg, Slow IV Push, ONCE, 1 dose, On 10/31/22 at 1000, STAT [facility] iopamidol (ISOVUE 370-500 mL) injection 90 mL 10-31 13:30: 00 10-31 13:39 :00 No [id number] 90mL 90 mL, Intravenou s, ONCE, 1 dose, On Tue10/31/22 at 0830, Routine [facility] NaCl 0.9% (NS) bolus infusion 1,000 mL 10-31 13:30: 00 10-31 14:34 :00 No 1000mL at 999 mL/hr, 1,000 mL, IV Infusion, ONCE, 1 dose, [facility] Tue10/31/22 [facility] 0830[facility]ZOFRAN (PF[facility] 4 mg 10-31 12:45: 00 10-31 12:47 :00 No 4mg 4 mg, Slow IV Push, ONCE, 1 dose, On Tue10/31/22 at 0745, [facility] ketorolac (TORADOL) injection 15 mg 10-31 12:38: 00 10-31 12:47 :00 No 15mg 15 mg, Slow IV Push, ONCE, 1 dose, On Tue10/31/22 at 0745, [facility] dicyclomine 20 mg tablet 10-31 00:00: 00 Yes [id number] 20mg Take 1 tablet by mouth 4 (four) times daily. [facility] ondansetron 4 mg tablet 10-31 00:00: 00 Yes [id number] 4mg Take 1 tablet by mouth every 8 (eight) hours as needed for Nausea and Vomiting (N/V) for up to 20 doses. [facility] benzonatate 100 mg capsule 10-15 00:00: 00 Yes [id number] 100mg Take 1 capsule by mouth 3 (three) times daily as needed for Cough. [facility] albuterol 90 mcg/actuati on inhaler 10-15 00:00: 00 Yes [id number] 2{puff} Inhale 2 Puffs every 4 (four) hours as needed for Wheezing or Shortness of Breath. [facility] predniSONE 20 mg tablet 2023-0 3-31 00:00: 00 Yes [id number] 40mg Take 2 tablets by mouth in the morning. [facility] NaCl 0.9% (NS) bolus infusion 1,000 mL 07-22 02:00: 00 07-22 01:45 :00 No 1000mL at 999 mL/hr, 1,000 mL, IV Infusion, ONCE, 1 dose, On Tue07/21/22 at 2000, [facility] iopamidol (ISOVUE 370-500 mL) injection 75 mL 07-22 01:52: 00 07-22 02:15 :00 No [id number] 75mL 75 mL, Intravenou s, ONCE, 1 dose, On Tue07/21/22 at 2015, Routine [facility] acetaminoph en (TYLENOL) tablet 1,000 mg 07-22 01:15: 00 07-22 01:17 :00 No 1000mg 1,000 mg, Oral, ONCE, 1 dose, On Tue07/21/22 at 1915, Routine [facility] ibuprofen (IBU) tablet 800 mg 07-22 01:15: 00 07-22 01:17 :00 No 800mg 800 mg, Oral, ONCE, 1 dose, On Tue07/21/22 at 1915, [facility] ondansetron (ZOFRAN (PF)) injection 4 mg 07-22 00:38: 00 07-22 00:38 :00 No 4mg 4 mg, Slow IV Push, ONCE, 1 dose, On Tue07/21/22 at 1845, [facility] HYDROCODONE -ACETAMINOP HEN 5-500 MG ORAL CAP 07-21 16:21: 59 Yes None Entered [facility] CIPROFLOXAC IN 500 MG ORAL TAB 07-21 16:21: 59 Yes None Entered [facility] ondansetron 4 mg disintegrat ing tablet 07-21 00:00: 00 Yes [id number] 4mg Take 1 tablet by mouth every 8 (eight) hours as needed for Nausea and Vomiting (N/V). [facility] levoFLOXaci n 750 mg tablet 07-21 00:00: 00 Yes [id number] 750mg Take 1 tablet by mouth every 24 (twenty-fo ur) hours. [facility] dicyclomine 20 mg tablet 07-21 00:00: 00 10-31 00:00 :00 No [id number] 20mg Take 1 tablet by mouth 4 (four) times daily as needed for Abdominal pain. [facility] benzonatate 100 mg capsule 10-01 00:00: 00 Yes [id number] 100mg Take 1 capsule by mouth 3 (three) times daily as needed for Cough. [facility] acetaminoph en-codeine 300-30 mg tablet 10-01 00:00: 00 Yes [id number] 1{tbl} Take 1-2 tablets by mouth every 6 (six) hours as needed (cough). [facility] loratadine- pseudoephed rine (CLARITIN-D 24 HOUR) 10-240 mg per 24 hr tablet 10-01 00:00: 00 Yes [id number] 1{tbl} Take 1 tablet by mouth daily. [facility] montelukast 10 mg tablet 10-01 00:00: 00 Yes [id number] 10mg Take 1 tablet by mouth daily. [facility] Vital Signs Vital Name Observation Time Observation Value Comments S ource Body Temperature 2023-10-08 14:34:00 100.9 [degF] C Heart Rate 2023-10-08 14:34:00 84 /min [facility] Respiratory rate 2023-10-08 14:34:00 18 /min [facility] BP Systolic 2023-10-08 14:34:00 128 mm[Hg] [facility] BP Diastolic 2023-10-08 14:34:00 56 mm[Hg] [facility] Height 2023-10-08 12:07:00 162.987575 cm [facility] Weight 2023-10-08 12:07:00 99.682638 kg [facility] BMI (Body Mass Index) 2023-10-08 12:07:00 37.8 kg/m2 [facility] Systolic blood pressure 2022-11-11 13:02:00 150 mm[Hg] [facility] Diastolic blood pressure 2022-11-11 13:02:00 80 mm[Hg] [facility] Heart rate 2022-11-11 13:02:00 71 /min [facility] Body temperature 2022-11-11 12:59:00 36.72 Chloe [facility] Respiratory rate 2022-11-11 12:59:00 16 /min [facility] Body height 2022-11-11 12:59:00 170.2 cm [facility] Body weight 2022-11-11 12:59:00 112.492 kg [facility] BMI 2022-11-11 12:59:00 38.84 kg/m2 [facility] Oxygen saturation in Arterial blood by Pulse oximetry 2022-11-11 12:59:00 97 /min [facility] Systolic blood pressure 2022-10-31 13:45:00 128 mm[Hg] [facility] Diastolic blood pressure 2022-10-31 13:45:00 77 mm[Hg] [facility] Heart rate 2022-10-31 13:45:00 69 /min [facility] Respiratory rate 2022-10-31 13:45:00 26 /min [facility] Oxygen saturation in Arterial blood by Pulse oximetry 2022-10-31 13:45:00 95 /min [facility] Body temperature 2022-10-31 12:15:00 37 Chloe [facility] Body height 2022-10-31 12:15:00 162.6 cm [facility] Body weight 2022-10-31 12:15:00 110.224 kg [facility] BMI 2022-10-31 12:15:00 41.71 kg/m2 [facility] Systolic blood pressure 2022-10-16 00:47:00 150 mm[Hg] [facility] Diastolic blood pressure 2022-10-16 00:47:00 80 mm[Hg] [facility] Heart rate 2022-10-16 00:47:00 63 /min [facility] Body temperature 2022-10-16 00:47:00 37 Chloe [facility] Respiratory rate 2022-10-16 00:47:00 18 /min [facility] Body height 2022-10-16 00:47:00 162.6 cm [facility] Body weight 2022-10-16 00:47:00 113.399 kg [facility] BMI 2022-10-16 00:47:00 42.91 kg/m2 [facility] Oxygen saturation in Arterial blood by Pulse oximetry 2022-10-16 00:47:00 98 /min [facility] Body temperature 2022-07-22 02:39:00 38.61 Chloe [facility] Heart rate 2022-07-22 02:27:00 102 /min [facility] Respiratory rate 2022-07-22 02:27:00 21 /min [facility] Oxygen saturation in Arterial blood by Pulse oximetry 2022-07-22 02:27:00 94 /min [facility] Systolic blood pressure 2022-07-22 01:15:00 150 mm[Hg] [facility] Diastolic blood pressure 2022-07-22 01:15:00 79 mm[Hg] [facility] Body height 2022-07-21 22:21:00 162.6 cm [facility] Body weight 2022-07-21 22:21:00 108.863 kg [facility] BMI 2022-07-21 22:21:00 41.20 kg/m2 [facility] Procedures Procedure Date / Time Performed Performing Clinicia n Source CONSENT/REFUSAL FOR DIAGNOSIS AND TREATMENT 2022-11-11 12:48:08 Doctor Unassigned, [place] [facility] EKG-12 LEAD 2022-10-31 14:43:13 Jesse Stone [facility] POCT TEST 2022-10-31 13:46:00 Jesse Stone [facility] URINALYSIS 2022-10-31 13:44:00 Jesse Stone [facility] CT ABDOMEN PELVIS W CONTRAST 2022-10-31 13:38:42 Jesse Stone [facility] LIPASE 2022-10-31 12:40:00 [facility]. MET[facility]OLIC PANEL ([id number]) 2022-10-31 12:40:00 Jesse Stone [facility] CBC WITH DIFF 2022-10-31 12:40:00 Jesse tSone [facility] CONSENT/REFUSAL FOR DIAGNOSIS AND TREATMENT 2022-10-31 12:10:53 Doctor Unassigned, [place] [facility] XR CHEST 2 VW 2022-10-16 01:09:32 [facility] RAPID STREP SCREEN FOR GROUP A 2022-10-16 00:56:00 [facility] RAPID INFLUENZA A/B 2022-10-16 00:56:00 [facility] COVID-19 (ID NOW RAPID TESTING) 2022-10-16 00:56:00 [facility] NOTICE OF PRIVACY PRACTICES 2022-10-16 00:43:23 Doctor Unassigned, [place] [facility] CONSENT/REFUSAL FOR DIAGNOSIS AND TREATMENT 2022-10-16 00:43:06 Doctor Unassigned, [place] [facility] EKG-12 LEAD 2022-07-22 02:39:47 Lucho Wright [facility] XR CHEST 1 VW 2022-07-22 02:01:00 Lucho Wright [facility] CT ABDOMEN PELVIS W CONTRAST 2022-07-22 01:55:00 Lucho Wright [facility] LIPASE 2022-07-22 00:39:00 Lucho Wright [facility] TROPONIN I 2022-07-22 00:39:00 Lucho Wright [facility] COMP. METABOLIC PANEL ([id number]) 2022-07-22 00:39:00 Lucho Wright [facility] CBC WITH DIFF 2022-07-22 00:39:00 Lucho Wright [facility] N-TERMINAL PRO-BNP 2022-07-22 00:39:00 Evelyn Wright [facility] URINALYSIS 2022-07-21 23:16:00 Lucho Wright [facility] RAPID INFLUENZA A/B 2022-07-21 23:16:00 Echo Wright [facility] COVID-19 (ID NOW RAPID TESTING) 2022-07-21 23:16:00 Lucho Wright [facility] ASSIGNMENT OF BENEFITS 2022-07-21 23:01:45 Docto r Unassigned, [place] [facility] Encounters Start Date/Time End Date/Time Encounter Type Admission Type Attending [facility] Care Facility Care Department Encounter ID Source 2021-05-14 14:41:55 Emergency X [facility] ERT [id number] [facility] 2023-10-08 11:56:00 2023-10-08 14:40:00 Emergency ER RAGHU GUZMÁN [facility] [id number] [facility] 2023-10-08 11:56:00 2023-10-08 14:40:00 Departed Emergency Room [facility] LIVE HCIS [id number] [facility] 2022-11-18 00:00:00 2022-11-18 00:00:00 [id number] 2022-11-11 08:30:00 2022-11-11 09:00:05 Outpatient R DAVEY CAMARGO [facility] [id number] [facility] 2022-11-11 08:30:00 2022-11-11 09:00:05 [facility] 1.2.840.114 [id number] [id number] [id number] [facility] 2022-11-11 00:00:00 2022-11-11 00:00:00 Orders Only Doctor Unassigned, [place] [facility] 1.2.840.114 350.1.13.10 4.2.7.2.686 [id number] [facility] 2022-10-31 07:17:00 2022-10-31 09:57:00 Emergency X JESSE STONE TIMOTHY [facility] ERT [id number] [facility] 2022-10-31 07:17:00 2022-10-31 09:57:00 Emergency Jesse Stone [facility] 1.2.840.114 350.1.13.10 4.2.7.2.686 [id number] [facility] 2022-10-15 19:51:00 2022-10-15 21:55:00 Emergency X HELEN MONSON [facility] ERT [id number] [facility] 2022-10-15 19:51:00 2022-10-15 21:55:00 Emergency Helen Monson [facility] [id number] 350.1.13.10 4.2.7.2.686 [id number] [facility] 2022-10-15 00:00:00 2022-10-15 00:00:00 Orders Only Doctor Unassigned, [place] [facility] 1.2.840.114 350.1.13.10 4.2.7.2.686 [id number] [facility] 2022-07-21 16:23:00 2022-07-21 20:41:00 Emergency Lucho Wright [facility] 1.2.840.114 350.1.13.10 4.2.7.2.686 [id number] [facility] 2022-07-21 16:23:00 2022-07-21 20:41:00 Emergency X LUCHO WRIGHT [facility] ERT [id number] [facility] 2019-10-02 08:08:24 2019-10-02 09:12:00 Emergency Osei Felix [facility] 1.2.840.114 350.1.13.10 4.2.7.2.686 [id number] Results Test Description Test Time Test Comments Results Result Co mments Source CFCFLUBV RNA Nph Ql GERARD+pcl-[id number] 12:05:00* Test Item Value Reference Range Interpretation Comme nts Influenza Virus Type B (PCR) (test code = 18997-9) Negative Negative CFCRSV RNA Nph Ql GERARD+vqh-gmkit1884-42-23 12:05:00* Test Item Value Reference Range Interpretation Comme nts Respiratory Syncytial Virus (PCR) (test code = 44415-6) Negative Negative CFCSpecimen source [id number] 12:05:00* Test Item Value Reference Range Interpretation Comme nts Respiratory Virus Source (test code = 07271-5) Nasopharyngeal swab [id number]-[id number] RNA Resp Ql GERARD+[id number] 12:05:00* Test Item Value Reference Range Interpretation Comme nts Coronavirus (COVID-19)(PCR) (test code = 68687-4) Negative Negative CFCPOCT [id number] 13:46:00* Test Item Value Reference Range Interpretation Comme nts POCT PREG (test code = 1605) negative On board controls acceptable with C Line (test code = 3574) present POCT PREG LOT # (test code = 3570) [id number] POCT PREG TEST DATE ( test code = 3576) 04/22/2024 Lab Interpretation (test cod e = 93050-2) [facility] (57827)2022-10-31 13:14:24* Test Item Value Reference Range Interpretation Comme nts NA (test code = 5962131274) 139 mmol/L 135-145 K (test code = 2461315376) 4.4 mmol/L 3.5-5.0 CL (test code = 1728698936) 104 mmol/L 98-108 CO2 TOTAL (test code = 3060314944) 24 mmol/L 23-31 AGAP (test code = 3479041634) 11 2-16 BUN (test code = 9806199707) 15 mg/dL 7-23 GLUCOSE (test code = 3860906567) 102 mg/dL 70-110 CREATININE (test code = 8593552141) 0.74 mg/dL 0.50-1.04 TOTAL BILI (test code = 1328391652) 0.5 mg/dL 0.1-1.1 CALCIUM (test code = 5918764511) 9.2 mg/dL 8.6-10.6 T PROTEIN (test code = 7636100922) 7.5 g/dL 6.3-8.2 ALBUMIN (test code = 9032660272) 4.0 g/dL 3.5-5.0 ALK PHOS (test code = 7225250720) 71 U/L 34-122 ALTv (test code = 1742-6) 51 U/L 5-35 H AST(SGOT) (test code = 7388126316) 57 U/L 13-40 H eGFR (test code = 0967604824) 81.8 mL/min/1.73m2 OSITO (test code = OSITO) [...] imaging tests). Lab Interpretation (test code = 52529-5) [facility] 13:14:24* Test Item Value Reference Range Interpretation Comme nts LIPASE (test code = 5299608736) 76 U/L 0-220 Lab Interpretation (test cod e = 48722-7) [facility] [id number] 13:02:59* Test Item Value Reference Range Interpretation Comme nts WBC (test code = 6690-2) 10.05 See_Comment [Automated [employer] BURLESQUICEOUS] The system which generated this result transmitted reference range: 4.30 - 11.10 10*3/?L. The reference range was not used to interpret this result as normal/abnormal. RBC (test code = 789-8) 4.67 See_Comment [Automated [employer] BURLESQUICEOUS] The system which generated this result transmitted [...] 32.5 g/dL 31.6-35.1 RDW-SD (test code = 56329-9) 46.2 fL 39.0-49.9 RDW-CV (test code = 788-0) 14.0 % 12.0-15.5 PLT (test code = 777-3) 255 See_Comment [Automated [employer] BURLESQUICEOUS] The system which generated this result transmitted reference range: 166 - 358 10*3/?L. The reference range was not used to interpret this result as normal/abnormal. MPV (test code = 50649-4) 12.2 fL 9.5-12.9 NRBC/100 WBC (test code = 0874223834) 0.0 See_Comment [Automated me ssage] The system which generated this result transmitted reference range: 0.0 - 10.0 /100 WBCs. The reference range was not used to interpret this result as normal/abnormal. NRBC x10^3 (test code = 3290895208) See_Comment [Automated messa ge] The system which generated this result transmitted reference range: 10*3/?L. The reference range was not used to interpret this result as normal/abnormal. GRAN MAT (NEUT) % (test code = 770-8) 63.9 % IMM GRAN % (test code = 1165703175) 0.30 % LYMPH % (test code = 736-9) 23.9 % MONO % (test code = 5905-5) 10.2 % EOS % (test code = 713-8) 1.4 % BASO % (test code = 706-2) 0.3 % GRAN MAT x10^3(ANC) (test code = 3503955505) 6.42 10*3/uL 1.88-7.09 IMM GRAN x10^3 (test code = 3398390631) 0.03 10*3/uL 0.00-0.06 LYMPH x10^3 (test code = 731-0) 2.40 10*3/uL 1.32-3.29 MONO x10^3 (test code = 742-7) 1.03 10*3/uL 0.33-0.92 H EOS x10^3 (test code = 711-2) 0.14 10*3/uL 0.03-0.39 BASO x10^3 (test code = 704-7) 0.03 10*3/uL 0.01-0.07 Lab Interpretation (test code = 75400-9) Abnormal [facility] [id number] 01:12:00* Test Item Value Reference Range Interpretation Comments TROPONIN I (test code = 2264588092) 0.004 ng/mL See_Comment [Automated message] The system [...] of biotin. Lab Interpretation (test code = 52024-3) Normal [facility] [id number] 01:08:43* Test Item Value Reference Range Interpretation Comme nts NT-proBNP (test code = 1225826198) 72 pg/mL See_Comment [Automated message] The system which generated this result transmitted reference range: <=125. The reference range was not used to interpret this result as normal/abnormal. OSITO (test code = OSITO) Biotin has been reported to cause a negative bias, interpret results relative to patient's use of biotin. Lab Interpretation (test code = 01017-5) [facility]EL (97642)2022-07-22 01:00:19* Test Item Value Reference Range Interpretation Comme nts NA (test code = 3231535582) 141 mmol/L 135-145 K (test code = 0994001344) 5.0 mmol/L 3.5-5.0 CL (test code = 6066313976) 106 mmol/L 98-108 CO2 TOTAL (test code = 8962128338) 24 mmol/L 23-31 AGAP (test code = 8135966350) 2-16 BUN (test code = 0948786867) 17 mg/dL 7-23 GLUCOSE (test code = 9998085005) 107 mg/dL 70-110 CREATININE (test code = 3515127196) 0.80 mg/dL 0.50-1.04 TOTAL BILI (test code = 0180261338) 0.8 mg/dL 0.1-1.1 CALCIUM (test code = 2769118031) 8.9 mg/dL 8.6-10.6 T PROTEIN (test code = 1987282582) 8.6 g/dL 6.3-8.2 H ALBUMIN (test code = 5706493152) 4.3 g/dL 3.5-5.0 ALK PHOS (test code = 6702725520) 100 U/L 34-122 ALTv (test code = 1742-6) 25 U/L 5-35 AST(SGOT) (test code = 1819875550) 36 U/L 13-40 eGFR (test code = 2014612762) mL/min/1.73m2 OSITO (test code = OSITO) Association [...] imaging tests). Lab Interpretation (test code = 07682-2) [facility]normal [facility] 01:00:04* Test Item Value Reference Range Interpretation Comme nts LIPASE (test code = 0199583524) 107 U/L 0-220 Lab Interpretation (test cod e = 30366-7) Normal [facility] WITH [id number] 00:47:58* Test Item Value Reference Range Interpretation [...] g/dL 31.6-35.1 L RDW-SD (test code = 26436-1) 47.1 fL 39.0-49.9 RDW-CV (test code = 788-0) 13.7 % 12.0-15.5 PLT (test code = 777-3) See_Comment [Automated message] The system which generated this result transmitted reference range: 166 - 358 10*3/?L. The reference range was not used to interpret this result as normal/abnormal. MPV (test code = 60943-9) 12.0 fL 9.5-12.9 NRBC/100 WBC (test code = 8795919903) See_Comment [Automated message] The system which generated this result transmitted reference range: 0.0 - 10.0 /100 WBCs. The reference range was not used to interpret this result as normal/abnormal. NRBC x10^3 (test code = 7400149883) See_Comment [Automated message] The system which generated this result transmitted reference range: 10*3/?L. The reference range was not used to interpret this result as normal/abnormal. GRAN MAT (NEUT) % (test code = 770-8) 84.3 % IMM GRAN % (test code = 7441113280) 0.90 % LYMPH % (test code = 736-9) 11.2 % MONO % (test code = 5905-5) 2.8 % EOS % (test code = 713-8) 0.4 % BASO % (test code = 706-2) 0.4 % GRAN MAT x10^3(ANC) (test code = 4181843612) 11.75 10*3/uL 1.88-7.09 H IMM GRAN x10^3 (test code = 9049062069) 0.12 10*3/uL 0.00-0.06 H LYMPH x10^3 (test code = 731-0) 1.56 10*3/uL 1.32-3.29 MONO x10^3 (test code = 742-7) 0.39 10*3/uL 0.33-0.92 EOS x10^3 (test code = 711-2) 0.06 10*3/uL 0.03-0.39 BASO x10^3 (test code = 704-7) 0.05 10*3/uL 0.01-0.07 Lab Interpretation (test code = 17162-3) Abnormal [facility]"
[2024-04-17] MEDS ORDERED: ONDANSETRON 4 MG/2 ML VIAL ONE (14:20)
[2024-04-17] MEDS ORDERED: NA CHLORIDE 0.9% 1,000 ML ONE (14:20)
[2024-04-17] MEDS ORDERED: KETOROLAC 30 MG/ML INJ ONE (14:20)
[2024-04-17 14:28] LABS: Absolute Lymphocytes (CBC) 1.1 K/uL (0.7-4.9); Absolute Monocytes 0.4 K/uL (0.1-1.3); Absolute Neutrophil 10.9 K/uL (1.8-8.0); Basophils % 0.2 % (0-1.3); Eosinophils % 0.2 % (0-4.4); Hematocrit 41.7 % (36.0-45.0); Hemoglobin 13.6 g/dL (12.0-15.0); Lymphocytes % 8.6 % (15.3-44.8); MCH 29.5 pg (27.0-35.0); MCHC 32.6 g/dL (32.0-36.0); MCV 90.7 fL (80-100); MPV 10.6 fL (7.6-11.3); Monocytes % 2.9 % (3.3-12.3); Neutrophils % 88.1 % (41.7-73.7); Platelets 228 thou/uL (152-406)
[2024-04-17 14:28] LABS: Specific Gravity 1.029 (1.005-1.030); Sqamous Epithelial <5 /HPF (None Seen); Urine Bacteria 20-50 /HPF (<20); Urine Bilirubin NEGATIVE (Negative); Urine Blood 1+ (Negative); Urine Clarity Clear (Clear); Urine Color Light-Yellow (Yellow); Urine Culture Reflex Order NOT NEEDED; Urine Glucose NEGATIVE (Negative); Urine Ketones NEGATIVE (Negative); Urine Microscopic Reflex YN ORDER UMIC; Urine Mucus Slight /HPF (None Seen); Urine Nitrite NEGATIVE (Negative); Urine Protein TRACE (Negative); Urine Urobilinogen Normal (Normal); Urine WBC <5 /HPF (<5); Urine pH 5.5 (5.0-7.0)
[2024-04-17 14:31] LABS: SARS-CoV-2 Antigen CONTROL BLUE LINE VIS/BG OK; SARS-CoV-2 Antigen Rapid Res Negative (Negative)
[2024-04-17 14:51] LABS: Albumin 3.7 g/dL (3.4-5.0); Albumin/Globulin Ratio 0.8 (1.1-1.8); Anion Gap 9.3 mEq/L (5.0-15.0); Bilirubin Total 0.5 mg/dL (0.2-1.0); Globulin 4.6 g/dL (2.3-3.5); Potassium 4.3 mEq/L (3.5-5.1); Protein, Total 8.3 g/dL (6.4-8.2)
--- NOTE | 2024-04-17 16:51 | RAD REPORT ---
EXAMINATION: Abdomen Exam Limited CLINICAL HISTORY: [facility] MAIN N gallbladder, RUQ;Epigastric pain Bed Name: DX4 COMPARISON: 11/03/2022. TECHNIQUE: Limited upper abdominal grayscale and color flow sonographic images. FINDINGS: Gallbladder: Contracted, over numerous echogenic shadowing stones. No pericholecystic fluid or signif icant wall thickening. Bile ducts: No intrahepatic or extrahepatic biliary dilatation. Common bile duct measures 5 mm. Liver: Visualized portions of the liver demonstrate normal echogenicity with no suspicious findings. Fluid: No ascites. IMPRESSION: Cholelithiasis within a contracted gallbladder. No other suspicious sonographic findings.
--- NOTE | 2024-04-17 18:02 | EDPHYS ---
Physician Documentation [facility] Name: Luz Freeman Age: 53 yrs Sex: Female : 1970 Arrival Date: 04/17/2024 Time: 12:58 Bed DX4 Private MD: ED Physician Anamaria Rod HPI: 04/17 15:02 This 53 yrs old Female presents to ER via Ambulatory with complaints of gb1 Vomiting, Fever, Abdominal Pain. 15:02 53-year-old female here with vomiting, fever and abdominal pain that started gb1 this morning. She woke up and felt nauseated and then vomited a couple times. She does have epigastric pain as well and was told sometime ago that she had 1 tiny little golf. She saw specialist for that and was told not to have her gallbladder removed. Patient also states that she drank a lot this weekend she considered it binge drinking as well as eating very spicy Somali foods. She denies any diarrhea or cough, chest pain or shortness of breath.. Historical: - Allergies: 13:34 NKDA; iw - Home Meds: 13:34 None [Active]; iw - PMHx: 13:34 None; iw - PSHx: 13:34 None; iw - Immunization history:: Adult Immunizations up to date. - Infectious Disease History:: Denies. - Social history:: Smoking status: Patient denies any tobacco usage or history of. Exam: 15:02 Constitutional: This is a well developed, well nourished patient who is awake, alert, gb1 and in no acute distress. Head/Face: Normocephalic, atraumatic. Eyes: Pupils equal round and reactive to light, extra-ocular motions intact. Lids and lashes normal. Conjunctiva and sclera are non-icteric and not injected. Cornea within normal limits. Periorbital areas with no swelling, redness, or edema. ENT: Nares patent. No nasal discharge, no septal abnormalities noted. Tympanic membranes are normal and external auditory canals are clear. Oropharynx with no redness, swelling, or masses, exudates, or evidence of obstruction, uvula midline. Mucous membranes moist. Neck: Trachea midline, no thyromegaly or masses palpated, and no cervical lymphadenopathy. Supple, full range of motion without nuchal rigidity, or vertebral point tenderness. No Meningismus. Chest/axilla: Normal chest wall appearance and motion. Nontender with no deformity. No lesions are appreciated. Cardiovascular: Regular rate and rhythm with a normal S1 and S2. No gallops, murmurs, or rubs. Normal PMI, no JVD. No pulse deficits. Respiratory: Lungs have equal breath sounds bilaterally, clear to auscultation and percussion. No rales, rhonchi or wheezes noted. No increased work of breathing, no retractions or nasal flaring. Abdomen/GI: Soft, non-tender, with normal bowel sounds. No distension or tympany. No guarding or rebound. Positive epigastric tenderness. Negative Felder's sign. Back: No spinal tenderness. No costovertebral tenderness. Full range of motion. Skin: Warm, dry with normal turgor. Normal color with no rashes, no lesions, and no evidence of cellulitis. MS/ Extremity: Pulses equal, no cyanosis. Neurovascular intact. Full, normal range of motion. Vital Signs: 13:33 BP 118 / 74; Pulse 85; Resp 18; Pulse Ox 99% on R/A; Weight 113.4 kg; Height 5 ft. 7 iw in. ; Pain 7/10; 13:33 Body Mass Index 39.16 (113.40 kg, 170.18 cm) iw 13:33 Pain Scale: Adult iw MDM: 14:57 Patient medically screened. gb1 15:02 Differential diagnosis: Nonspecific abd pain, gastritis, cholecystitis, pancreatitis, gb1 diverticulitis, viral gastroenteritis, gastroenteritis. Data reviewed: vital signs, nurses notes, lab test result(s), amylase and lipase, CBC, electrolytes, Flu: hepatic panel, radiologic studies, ultrasound. 18:02 ED course: 53-year-old female with midepigastric pain found to have a gallstone on the gb1 right upper quadrant ultrasound without signs of acute cholecystitis or gallstone pancreatitis. There is no sign of biliary obstruction and the patient is able to tolerate p.o. by mouth prior to discharge home. 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 She did relay to me that the patient already has Zofran and really the problem will be solved by her diet modification. Patient is compliant with this plan of care and I recommend general surgery outpatient follow-up for evaluation for cholecystectomy.. 04/17 13:33 Order name: Flu; Complete Time: 14:56 iw 04/17 13:33 Order name: SARS RAPID; Complete Time: 14:56 iw 04/17 13:59 Order name: CBC with Diff gb1 04/17 13:59 Order name: CMP; Complete Time: 14:56 gb1 04/17 13:59 Order name: Lipase; Complete Time: 14:56 gb1 04/17 13:59 Order name: Urinalysis w/ reflexes; Complete Time: 14:56 gb1 04/17 15:02 Order name: US Abdomen Limited; Complete Time: 17:05 gb1 04/17 14:00 Order name: IV Saline Lock; Complete Time: 14:19 gb1 04/17 14:00 Order name: Labs collected and sent; Complete Time: 14:19 gb1 Administered Medications: 14:29 Drug: NS 0.9% IV 1000 ml IV at 1 bolus Per protocol; 1000 mL bolus Route: IV; Rate: 1 iw bolus; Site: right antecubital; 15:30 Follow up: IV Status: Completed infusion iw 14:29 Drug: TORadol - Ketorolac IVP 15 mg IVP once Route: IVP; Site: right antecubital; iw 14:29 Drug: Ondansetron IVP 4 mg IVP once; over 2 minutes Route: IVP; Site: right antecubital;iw Disposition Summary: 04/17/24 18:02 Discharge Ordered Notes: Location: Home gb1 Condition: Stable gb1 Diagnosis - Calculus of gallbladder without cholecystitis gb1 - Abdominal pain, Generalized gb1 Followup: gb1 - With: Private Physician - When: - Reason: If symptoms return, Further diagnostic work-up Discharge Instructions: - Discharge Summary Sheet gb1 - Colic gb1 Forms: - Medication Reconciliation Form gb1 - Antibiotic Education gb1 - Prescription Opioid Use gb1 - Patient Portal Instructions gb1 - Leadership Thank You Letter gb1 Prescriptions: - dicyclomine 10 mg Oral capsule - take 1 capsule ORAL route 2 times per day; 30 capsule; Refills: 0, Product gb1 Selection Permitted Signatures: Dispatcher [employer] Becca Kothari RN RN iw Anamaria Rod MD MD gb1 Corrections: (The following items were deleted from the chart) 15:02 15:02 Abdomen Limited+[email or web address] ordered. EDMS EDMS
--- NOTE | 2024-04-17 18:02 | ER ---
Nurse's Notes [facility] Name: Luz Freeman Age: 53 yrs Sex: Female : 1970 Arrival Date: 04/17/2024 Time: 12:58 Bed DX4 Private MD: Diagnosis: Calculus of gallbladder without cholecystitis;Abdominal pain, Generalized Presentation: 04/17 13:33 Chief complaint: Patient states: vomiting, body aches, diarrhea, feels feverish sine iw this morning. Coronavirus screen: Client presents with at least one sign or symptom that may indicate coronavirus-19. Ebola Screen: No symptoms or risks identified at this time. Initial Sepsis Screen: Does the patient meet any 2 criteria? No. Patient's initial sepsis screen is negative. Does the patient have a suspected source of infection? No. Patient's initial sepsis screen is negative. Risk Assessment: Do you want to hurt yourself or someone else? Patient reports no desire to harm self or others. Onset of symptoms was April 17, 2024. 13:33 Method Of Arrival: Ambulatory iw 13:33 Acuity: CHEL 3 iw Historical: - Allergies: 13:34 NKDA; iw - Home Meds: 13:34 None [Active]; iw - PMHx: 13:34 None; iw - PSHx: 13:34 None; iw - Immunization history:: Adult Immunizations up to date. - Infectious Disease History:: Denies. - Social history:: Smoking status: Patient denies any tobacco usage or history of. Assessment: 13:40 General: Appears in no apparent distress. Behavior is calm, cooperative. Pain: iw Complains of pain in abdomen. Neuro: Level of Consciousness is awake, alert, obeys commands, Oriented to person, place, time, situation. GI: Abdomen is non-distended, Reports upper abdominal pain, nausea, vomiting. Derm: Skin is intact, is healthy with good turgor. 15:30 Reassessment: Patient appears in no apparent distress at this time. Patient and/or iw family updated on plan of care and expected duration. Pain level reassessed. Patient is alert, oriented x 3, equal unlabored respirations, skin warm/dry/pink. 16:55 Reassessment: Patient appears in no apparent distress at this time. pt requesting to be iw discharged, Dr. Rod notified. Vital Signs: 13:33 BP 118 / 74; Pulse 85; Resp 18; Pulse Ox 99% on R/A; Weight 113.4 kg; Height 5 ft. 7 iw in. ; Pain 7/10; 13:33 Body Mass Index 39.16 (113.40 kg, 170.18 cm) iw 13:33 Pain Scale: Adult iw ED Course: 13:22 Patient arrived in ED. mg5 13:34 Triage completed. iw 13:59 Anamaria Rod MD is Attending Physician. gb1 14:00 Initial lab(s) drawn, by nm, sent to lab. Inserted saline lock: 20 gauge in right iw antecubital area, using aseptic technique. Blood collected. Flushed with 10 mL NS. 14:14 Becca John, RN is Primary Nurse. iw 15:35 US Abdomen Limited In Process Unspecified. EDMS 17:27 No provider procedures requiring assistance completed. iw Administered Medications: 14:29 Drug: NS 0.9% IV 1000 ml IV at 1 bolus Per protocol; 1000 mL bolus Route: IV; Rate: 1 iw bolus; Site: right antecubital; 15:30 Follow up: IV Status: Completed infusion iw 14:29 Drug: TORadol - Ketorolac IVP 15 mg IVP once Route: IVP; Site: right antecubital; iw 14:29 Drug: Ondansetron IVP 4 mg IVP once; over 2 minutes Route: IVP; Site: right antecubital;iw Outcome: 18:02 Discharge ordered by . gb1 18:07 Patient left the ED. iw Signatures: Dispatcher [employer] EDMS Becca John, MIREYA RN Tamara Stoner mg5 Anamaria Rod MD MD gb1
[2024-04-17 18:53] LABS: Platelet Estimate ADEQ; White Blood Cell Scan OK (OK)
[2024-04-17 18:54] LABS: Blood Morphology Comment NOT SEEN (NOT SEEN)
[2024-04-17 19:08] VITALS: BP 118/74; O2SAT 99
== END 2024-04-17 18:07 | disposition home or self-care (01) ==
LOC: ER 12:58
DX: K80.20 Calculus of gallbladder without cholecystitis without obstruction (principal)
CPT/HCPCS: 36415; 76705; 80053; 81001; 83690; 85025; 87804; 87811; 96361; 96374; 96375; 99284; J2405; J7030